=== PATIENT | male | born 1960 | race Caucasian/White ===

== ENCOUNTER 2017-04-29 12:21 | Inpatient (IN) | payer BC ==
[~2017-04-29] VITALS: Ht 180.3 cm; Wt 116.8 kg
[~2017-04-29 12:21] MED LIST: ASCO1CAP PO; ASPI-110 PO; COQ-100C5 PO; CRANCAP2 PO; DEXAMETHASONE SOD PHOS 4 MG/ML VIAL IV ONE; FURO20TA PO; GABA300C5 PO; GLYCOPYRROLATE 0.2 MG/ML VIAL IV ONE; LACTATED RINGER'S 1000 ML INJ 1,000 ML IV ONE; LIDOCAINE HCL 1% PF 5 ML AMPULE OTHER ONE; MIDAZOLAM HCL 2 MG/2 ML VIAL IV ONE; MULT-65 PO; NIAC500T5 PO; OMEGCAP PO; ONDANSETRON HCL 4 MG/2 ML VIAL IV PUSH ONE; PROPOFOL 200 MG/20 ML AMP IV ONE; ROCURONIUM INJ 50 MG/5 ML SYRINGE IV PUSH ONE; ROSU10 PO; TAMS5CAP PO; ePHEDrine/NS 25 MG/5 ML SYR IV ONE
[2017-04-29] MEDS: POVIDONE IODINE 5% (ANTISEPSIS KIT) 4 APPLICATIONS EACH NARE PRN ×2 (13:00→13:30)
[2017-04-29] MEDS: CHLORHEXIDINE GLUCONATE 2 % 1 PACK (2 CLOTHS) TOPICAL PRN ×2 (13:00→13:30)
[2017-04-29] MEDS ORDERED: DEXT 5%-NACL 0.9% 1000 ML INJ 1,000 ML IV SCH (13:00)
[2017-04-29] MEDS ORDERED: SODIUM CHLORID 0.9% 500 ML IV PRN (13:00)
[2017-04-29] MEDS ORDERED: ceFAZolin 1,000 MG/NS 100 ML IV SCH ×2 (13:00)
[2017-04-29] MEDS ORDERED: METOPROLOL TARTRATE 25 MG TAB PO PRN (13:00)
[2017-04-29] MEDS ORDERED: INSULIN HUMAN REGULAR 1,000 UNITS/10 ML VIAL SQ PRN (13:00)
[2017-04-29] MEDS ORDERED: METRONIDAZOLE 500 MG/100 ML ISONTONIC SOLN IV SCH (13:00)
[2017-04-29] MEDS: LACTATED RINGER'S 1000 ML IV PRN ×2 (13:20→13:30)
--- NOTE | 2017-04-29 13:21 | PD.HP.UP ---
H&P Update Note The Pre-Admit History and Physical Examination regarding the above named patient was reviewed (including, but not limited to, vital signs, heart, lungs, co-morbid conditions), and upon re-examination it is noted that: the patient's condition has not significantly changed since the last examination. Jaspreet Knox MD Apr 29, 2017 13:21
--- NOTE | 2017-04-29 13:47 | RADRPT ---
EXAM DATE/TIME: 04/29/2017 12:48 [place] COMPARISON: No previous studies available for comparison. INDICATIONS : Evaluate for penumonia, pneumothorax, or communicable disease. Pre op for hernia repair. MEDICAL HISTORY : Myocardial infarction. Carcinoma, colon. Irritable bowel syndrome. Sleep apnea. Chemotherapy/Radi ation. Arthritis. SURGICAL HISTORY : Umbilical hernia repair. Colon resection. Sinusotomy. Cardiac Stent. ENCOUNTER: Initial ACUITY: 1 day PAIN SCORE: 0/10 LOCATION: chest FINDINGS: A single view of the chest demonstrates the lungs to be symmetrically aerated without evidence of mas s, infiltrate or effusion. The cardiomediastinal contours are unremarkable. Osseous structures are intact with some degenerative spurring of the dorsal spine. CONCLUSION: No acute cardiopulmonary process. Dave Hough MD on April 29, 2017 at 13:45 Board Certified Radiologist. This report was verified electronically.
[2017-04-29] MEDS ORDERED: ACETAMINOPHEN 1000 MG/100 ML 100 ML IV ONE (14:29)
[2017-04-29] MEDS ORDERED: HYDROmorphone HCL PF 2 MG/ML VIAL ONE (16:34)
[2017-04-29] MEDS ORDERED: SUGAMMADEX SODIUM 200 MG/2 ML VIAL IV PUSH ONE ×2 (16:34)
[2017-04-29] MEDS ORDERED: DO NOT ADM ANY ANTICOAGULANT DRUGS PRN (17:44)
[2017-04-29] MEDS ORDERED: BENZOCAINE 6 MG/MENTHOL 10 MG LOZENGE BUCCAL PRN (17:45)
[2017-04-29] MEDS ORDERED: NALOXONE HCL 0.4 MG/ML AMP IV PRN (17:45)
[2017-04-29] MEDS ORDERED: ENALAPRILAT 1.25 MG/ML VIAL IV PRN (17:45)
[2017-04-29] MEDS ORDERED: KETOROLAC TROMETHAMINE 30 MG/ML (IVP) VIAL IVP PRN (17:45)
[2017-04-29] MEDS ORDERED: ONDANSETRON HCL 4 MG/2 ML VIAL IV PRN (17:45)
[2017-04-29] MEDS ORDERED: SODIUM CHLORIDE 0.9% FLUSH 5 ML FLUSH IVF PRN (17:45)
[2017-04-29] MEDS ORDERED: GABAPENTIN 300 MG CAP PO PRN (17:45)
[2017-04-29] MEDS ORDERED: ENALAPRILAT 2.5 MG/2 ML VIAL IV PRN (17:45)
[2017-04-29] MEDS ORDERED: ACETAMINOPHEN/HYDROcodone 325 MG/5 MG TAB PO PRN (17:45)
[2017-04-29] MEDS ORDERED: ACETAMINOPHEN 325 MG TAB PO PRN (17:45)
[2017-04-29] MEDS ORDERED: POTASSIUM CHLOR 40 MEQ PREMIX 100 ML IV PRN (17:45)
[2017-04-29] MEDS ORDERED: POTASSIUM CHLOR 20 MEQ PREMIX 100 ML IV PRN (17:45)
[2017-04-29] MEDS ORDERED: MORPHINE SULFATE 30 MG/30 ML PCA IV SCH (17:45)
[2017-04-29] MEDS ORDERED: Post-op Orders (for Pharmacy) MISC XX ONE (17:45)
--- NOTE | 2017-04-29 17:47 | HHI.PR ---
Immediate Post Op Note Procedure Date: Apr 29, 2017 Pre Op Diagnosis: Mult Ventral Hernias Post Op Diagnosis: Same Surgeon: Jaspreet Knox Baggage Screener(s): Ariel Procedure: Exploratory Lap + repair mult ventral hernias Findings: mult ventral hernias, attenuated fascia No cancer Complications: None Specimen(s) removed: sac Estimated blood loss: 100cc Anesthesia: General Drains: HORACIO IVF Patient to: PACU Patient Condition: Good Jaspreet Knox MD Apr 29, 2017 17:47
[2017-04-29] MEDS ORDERED: *morphine SULFATE 8 MG/ML PERIprocedure ONLY ONE ×2 (17:52→18:00)
[2017-04-29] MEDS ORDERED: KETAMINE HCL 500 MG/5 ML VIAL ONE (17:53)
[2017-04-29] MEDS ORDERED: *HYDROmorphone PF 1 MG VIAL PERIprocedural Use ONLY ONE ×2 (18:08→18:36)
[2017-04-29] MEDS: D5-NS + KCL 20 MEQ INJ 1,000 ML IV SCH ×2 (18:15→23:24)
[2017-04-29 19:45] VITALS: BP 126/93; PULSE 64; RESP 16; TEMP 98; O2SAT 100
[2017-04-29 20:15] VITALS: PULSE 87
[2017-04-29] MEDS: SODIUM CHLORIDE 0.9% FLUSH 5 ML FLUSH IVF SCH (21:00)
[2017-04-29] MEDS: TAMSULOSIN HCL 0.4 MG CAP PO SCH (21:09)
[2017-04-29] MEDS: METOCLOPRAMIDE HCL 10 MG/2 ML VIAL IVS SCH (21:09)
[2017-04-29] MEDS: ATORVASTATIN 20 MG TAB PO SCH (21:09)
[2017-04-29] MEDS: metroNIDAZOLE 500 MG INJ 100 ML IV SCH (21:19)
[2017-04-29] MEDS: PCA - TOTAL MG MORPHINE DELIVERED PER SHIFT SCH (22:00)
[2017-04-29 23:25] VITALS: BP 98/65; PULSE 61; RESP 16; TEMP 98.8; O2SAT 100
[2017-04-30] VITALS (10 sets, daily range): BP systolic 92–135; BP diastolic 60–78; PULSE 61–101; RESP 16–20; TEMP 97.9–100.2; O2SAT 93–98
[2017-04-30] MEDS: D5-NS + KCL 20 MEQ INJ 1,000 ML IV SCH ×2 (05:07→14:54)
[2017-04-30] MEDS: PCA - TOTAL MG MORPHINE DELIVERED PER SHIFT SCH ×3 (06:00→21:54)
[2017-04-30] MEDS: metroNIDAZOLE 500 MG INJ 100 ML IV SCH ×2 (06:29→16:24)
[2017-04-30] MEDS: SODIUM CHLORIDE 0.9% FLUSH 5 ML FLUSH IVF SCH ×2 (09:00→20:07)
[2017-04-30] MEDS: PANTOPRAZOLE SODIUM 40 MG VIAL IVP SCH (09:00)
[2017-04-30] MEDS: PANTOPRAZOLE SOD 40 MG DELAYED RELEASE TAB PO SCH (09:14)
[2017-04-30] MEDS: METOCLOPRAMIDE HCL 10 MG/2 ML VIAL IVS SCH ×2 (09:15→20:03)
[2017-04-30] MEDS: TAMSULOSIN HCL 0.4 MG CAP PO SCH ×2 (09:15→20:03)
[2017-04-30] MEDS: ALVIMOPAN 12 MG CAPSULE PO SCH ×2 (09:27→20:03)
[2017-04-30 10:58] LABS: AUTOMATED NEUTROPHIL # 8.8 TH/MM3 (1.8-7.7); BASOPHIL % 0.1 % (0.0-2.0); EOSINOPHIL % 0.4 % (0.0-4.0); HEMATOCRIT 41.9 % (39.0-51.0); HEMO FLAGS DIFF FINAL; LYMPH % 11.1 % (9.0-44.0); LYMPHOCYTE # 1.3 TH/MM3 (1.0-4.8); MEAN CELL VOLUME 91.1 FL (80.0-100.0); MEAN CORPUSCULAR HEMOGLOBIN 30.7 PG (27.0-34.0); MEAN CORPUSCULAR HGB CONC 33.7 % (32.0-36.0); MONO % 10.7 % (0.0-8.0); NEUT % 77.7 % (16.0-70.0); PLATELET COUNT 193 TH/MM3 (150-450); RED CELL DISTRIBUTION WIDTH 13.1 % (11.6-17.2); WHITE BLOOD COUNT 11.3 TH/MM3 (4.0-11.0)
[2017-04-30 11:24] LABS: BICARBONATE 25.5 MEQ/L (21.0-32.0); POTASSIUM 4.2 MEQ/L (3.5-5.1)
[2017-04-30] MEDS: ATORVASTATIN 20 MG TAB PO SCH (20:03)
--- NOTE | 2017-04-30 21:02 | EKG ---
Date Performed: 04/29/2017 Time Performed: 13:50:34 PTAGE: 56 years EKG: Sinus rhythm WITH OCCASIONAL SUPRAVENTRICULAR PREMATURE COMPLEXES INFERIOR MYOCARDIAL INFARCTION , OF INDETERMINA TE AGE ABNORMAL ECG PREVIOUS TRACING : 05/22/2015 12.18 Compared to prior tracing no significant change DOCTOR: Cristiano Sanchez Interpretating Date/Time 04/30/2017 20:53:31
--- NOTE | 2017-04-30 23:21 | HHI.PR ---
Subjective Remarks C/R Surg POD # 1 afebrile, VSS UO good drains min Objective - Vital Signs Date Time Temp Pulse Resp B/P (MAP) Pulse Ox O2 Delivery O2 Flow Rate FiO2 04/30/17 21:54 16 04/30/17 21:45 Bi-Pap 04/30/17 20:24 96 04/30/17 19:00 98.4 86 135/73 (93) 04/30/17 08:03 21 04/29/17 19:45 3.00 Result Diagram: 04/30/17 0935 04/30/17 0935 Objective Remarks PE alert Abd - soft, wound dry A/P Assessment and Plan Imp: stable post-op OOB start PO dc Jaspreet Phillips MD Apr 30, 2017 23:21
[2017-05-01 00:39] VITALS: TEMP 99.8
[2017-05-01] MEDS: ACETAMINOPHEN/HYDROcodone 325 MG/5 MG TAB PO PRN ×4 (00:43→18:43)
[2017-05-01 03:00] VITALS: BP 114/63; PULSE 89; RESP 18; TEMP 98.7; O2SAT 96
[2017-05-01] MEDS: D5-NS + KCL 20 MEQ INJ 1,000 ML IV SCH ×3 (03:33→23:52)
[2017-05-01] MEDS: PCA - TOTAL MG MORPHINE DELIVERED PER SHIFT SCH (05:29)
[2017-05-01 05:54] LABS: AUTOMATED NEUTROPHIL # 8.2 TH/MM3 (1.8-7.7); BASOPHIL % 0.4 % (0.0-2.0); EOSINOPHIL # 0.1 TH/MM3 (0-0.4); EOSINOPHIL % 0.6 % (0.0-4.0); HEMATOCRIT 39.1 % (39.0-51.0); HEMO FLAGS DIFF FINAL; LYMPH % 11.2 % (9.0-44.0); LYMPHOCYTE # 1.2 TH/MM3 (1.0-4.8); MEAN CELL VOLUME 90.5 FL (80.0-100.0); MEAN CORPUSCULAR HEMOGLOBIN 30.2 PG (27.0-34.0); MEAN CORPUSCULAR HGB CONC 33.4 % (32.0-36.0); MONO % 10.8 % (0.0-8.0); PLATELET COUNT 181 TH/MM3 (150-450); RED BLOOD COUNT 4.33 MIL/MM3 (4.50-5.90); RED CELL DISTRIBUTION WIDTH 13.2 % (11.6-17.2); WHITE BLOOD COUNT 10.7 TH/MM3 (4.0-11.0)
[2017-05-01 06:20] LABS: BICARBONATE 25.1 MEQ/L (21.0-32.0); POTASSIUM 3.9 MEQ/L (3.5-5.1)
--- NOTE | 2017-05-01 07:36 | HHI.PR ---
Subjective Remarks C/R Surg POD # 2 afebrile, VSS UO good drains min to PO Objective - Vital Signs Date Time Temp Pulse Resp B/P (MAP) Pulse Ox O2 Delivery O2 Flow Rate FiO2 05/01/17 05:29 18 05/01/17 03:00 98.7 89 114/63 (80) 96 05/01/17 03:00 Room Air 04/30/17 08:03 21 04/29/17 19:45 3.00 Result Diagram: 05/01/1752305/01/17523 Objective Remarks PE alert Abd - soft, wound dry, + FLATUS A/P Assessment and Plan Imp: OOB start PO, adv dc Jaspreet Phillips MD May 01, 2017 07:36
[2017-05-01 07:45] VITALS: BP 118/75; PULSE 88; RESP 16; TEMP 98.5; O2SAT 94
[2017-05-01] MEDS ORDERED: METOCLOPRAMIDE HCL 10 MG/2 ML VIAL IVS PRN (07:45)
[2017-05-01] MEDS: PANTOPRAZOLE SODIUM 40 MG VIAL IVP SCH (09:00)
[2017-05-01] MEDS: SODIUM CHLORIDE 0.9% FLUSH 5 ML FLUSH IVF SCH ×2 (09:00→21:00)
[2017-05-01] MEDS: ALVIMOPAN 12 MG CAPSULE PO SCH ×2 (09:01→21:27)
[2017-05-01] MEDS: PANTOPRAZOLE SOD 40 MG DELAYED RELEASE TAB PO SCH (09:01)
[2017-05-01] MEDS: TAMSULOSIN HCL 0.4 MG CAP PO SCH ×2 (09:02→21:27)
[2017-05-01] MEDS: FUROSEMIDE 20 MG TAB PO SCH (09:02)
[2017-05-01 11:15] VITALS: BP 142/68; PULSE 79; RESP 16; TEMP 98.9; O2SAT 96
[2017-05-01 15:30] VITALS: BP 150/80; PULSE 93; RESP 16; TEMP 98.3; O2SAT 96
[2017-05-01 19:00] VITALS: BP 130/93; PULSE 93; TEMP 98.1; O2SAT 96
[2017-05-01] MEDS: ATORVASTATIN 20 MG TAB PO SCH (21:26)
[2017-05-02 00:55] VITALS: BP 124/76; PULSE 92; TEMP 99.8; O2SAT 98
[2017-05-02 03:00] VITALS: BP 118/74; PULSE 92; TEMP 98.5; O2SAT 98
--- NOTE | 2017-05-02 05:45 | MP ---
cc: MARY ANN TAVARES M.D. DATE OF SURGERY April 29, 2017 PREOPERATIVE DIAGNOSES Multiple ventral hernias. History of a rectal cancer. PROCEDURE Exploratory laparotomy with mobilization of skin flaps and repair of multiple ventral hernias. POSTOPERATIVE DIAGNOSES Multiple ventral hernias. History of a rectal cancer. SURGEON Dr. Tavares PERINATAL TECH Dr. Latrell George PROCEDURE The patient was placed in the supine position. After adequate general anesthesia his abdomen was prepped with Betadine solution and draped in the usual sterile fashion. With Dr. George's assistance the abdomen was opened through the previous transverse incision. Upon entering the subcu tissue hernia sacs were noted on the right side of the abdomen extending all the way across to the left. The hernia sacs were opened and the bowel dissected off the parietal peritoneum, returning it back into the abdominal cavity. After rather lengthy dissection, all hernia sacs were connected together, reopening the entire transverse incision. The hernia sacs were very thick-walled and chronic in nature and the sacs were dissected free from the subcutaneous tissue. There was quite a bit of attenuated fascia on both sides and this was excised back to healthier, more robust muscular tissue. At the right lateral and left flanks, the tissues were still somewhat attenuated from chronic hernia prolapse. Exploration of the abdomen revealed the small bowel to be pretty unremarkable. No signs of any recurrent cancer were noted. The liver was normal to palpation. The pelvis appeared to be pretty unremarkable. After full preparation, subcutaneous flaps were raised both above and below the transverse incision to obtain adequate mobilization to reapproximate the musculature. After full mobilization there appeared to be sufficient laxity to enable a primary closure. This was done with a running #1 PDS suture starting from both lateral quadrants and running toward the midline. There did not appear to be any undue tension on the fascial closure. The subcu tissues were irrigated copiously with normal saline. Tomi-Stevens drains were placed on both the skin flaps and brought up through stab wounds out laterally, secured to the skin with nylon sutures. The subcu tissues were sutured to the fascial closure with interrupted Vicryl sutures to obliterate space. The subcu tissue was irrigated copiously and the skin closed with a row of surgical leobardo. The wound area was washed with normal saline and dried, sterile dressing of Telfa and gauze applied. The patient tolerated the procedure quite well and was brought to the recovery room in stable condition. Sponge and needle counts were correct at the end of the procedure. MD ROLO Childers/OTTO /6:15 PM /5:30 AM
[2017-05-02] MEDS ORDERED: HYDR-3516 PO ×2 (07:16→07:20)
[2017-05-02 07:40] VITALS: BP 130/76; PULSE 91; RESP 16; TEMP 98.3; O2SAT 95
[2017-05-02] MEDS: ALVIMOPAN 12 MG CAPSULE PO SCH (08:42)
[2017-05-02] MEDS: FUROSEMIDE 20 MG TAB PO SCH (08:42)
[2017-05-02] MEDS: TAMSULOSIN HCL 0.4 MG CAP PO SCH (08:42)
[2017-05-02] MEDS: PANTOPRAZOLE SOD 40 MG DELAYED RELEASE TAB PO SCH (08:42)
[2017-05-02] MEDS: PANTOPRAZOLE SODIUM 40 MG VIAL IVP SCH (08:42)
[2017-05-02] MEDS: SODIUM CHLORIDE 0.9% FLUSH 5 ML FLUSH IVF SCH (08:43)
[2017-05-02 11:25] VITALS: BP 131/80; PULSE 92; RESP 16; TEMP 98.3; O2SAT 97
--- NOTE | 2017-05-15 10:12 | MD ---
cc: MARY ANN TAVARES M.D.,JAYLYN Tineo MD ADMISSION DATE: 04/29/2017 DISCHARGE DATE: 05/02/2017 ADMISSION DIAGNOSES Large ventral hernia. History of rectal cancer. PROCEDURES - April 29, 2017 Exploratory laparotomy with mobilization of bilateral skin flaps and repair of multiple ventral hernias. POSTOPERATIVE DIAGNOSES Multiple ventral hernias. History of rectal cancer. HISTORY OF PRESENT ILLNESS Mr. Bar is a 56-year-old male who was found to have a rectal cancer almost 3 years ago. He underwent preop radiation and chemotherapy and then LAR with diverting ileostomy, had the ileostomy closed. The patient has developed a rather large hernia and a transverse incision with actual multiple components across the transverse incision. These have become progressively larger over time and have caused him more disability. He has actually been on a diet recently and has lost a considerable amount of weight. He recently had a colonoscopy which showed no signs of any recurrence of the tumor. Also, metastatic evaluation has been negative. The patient presents at this time for repair of the multiple ventral hernias. Please see admitting history and physical for more complete past medical and surgical history. PERTINENT PHYSICAL GENERAL: A very pleasant heavy-set male in no acute distress. ABDOMEN: Soft and benign. Signs of weight loss. Abdomen is asymmetric with a large hernia present on the right side plus transverse incision, multiple other hernias are palpable, easily reducible and pretty much nontender. ANAL INSPECTION: Revealed benign canal. Digital exam reveals good tone with anastomosis palpable and opened. HOSPITAL COURSE After admission, the patient was taken to the operating room on April 29, 2017, at which point he underwent an exploratory laparotomy, mobilization of bilateral skin flaps and repair of multiple ventral hernias. No signs of any recurrent tumor were found within the abdomen. He tolerated the procedure quite well. Postoperatively he was put in an abdominal binder, required some respiratory therapy for postoperative atelectasis. He was able to ambulate fairly quickly and his diet was advanced as his GI tract function returned. The patient was doing well enough to be weaned off his IV fluids and strong enough to be considered for discharge home on May 02, 2017. DISCHARGE INSTRUCTIONS The patient was discharged eating a regular diet. He was encouraged to ambulate daily, avoiding any heavy lifting or straining. The abdominal binder was to be on at all times while out of bed and he was to avoid strenuous coughing or any lifting. The patient will be seen in 1 week for additional followup and removal of his subcutaneous drains. Any problems prior to the scheduled office visit, the patient was encouraged to call for more urgent attention. MD ROLO Childers/OTTO /10:31 PM /9:56 AM
== END 2017-05-02 14:47 | disposition home or self-care (01) | DRG 355 ==
LOC: N07B 12:21 → HCPC 18:06 → HCVR 19:45 → HCIN 04-30 11:28
PROVIDERS: ADMIT Colon & Rectal Surgery; ATTEND Colon & Rectal Surgery
PROC: 0WQF0ZZ Repair Abdominal Wall, Open Approach (ICD-10-PCS; principal; 2017-04-29 15:35)
DX: K43.9 Ventral hernia without obstruction or gangrene (principal); Z85.048 Personal history of other malignant neoplasm of rectum, rectosigmoid junction, and anus; E78.5 Hyperlipidemia, unspecified; I25.10 Atherosclerotic heart disease of native coronary artery without angina pectoris; I25.2 Old myocardial infarction; Z95.5 Presence of coronary angioplasty implant and graft; Z87.891 Personal history of nicotine dependence
CPT/HCPCS: 71010; 80048; 85025; 86850; 86900; 86901; 93005; 94150; J0131; J0690; J1100; J1170; J1885; J2250; J2270; J2405; J2765; J3010; J3480; J7120

== ENCOUNTER 2018-04-02 20:38 | Inpatient (IN) ==
[2018-04-02] MEDS ORDERED: HYDROmorphone PF Inj 2 MG/ML Vial IV.PUSH ONE ×2 (20:49→20:56)
[2018-04-02] MEDS ORDERED: Sod Chloride 0.9% Inj 1,000 ML IV.CONT SCH (21:00)
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
[2018-04-02] MEDS ORDERED: Acetaminophen 325 MG Tablet PO PRN (22:00)
[2018-04-02] MEDS: Pantoprazole Inj 40 MG Vial IV.PUSH SCH (23:53)
[2018-04-03] MEDS: Morphine Inj 4 MG/ML Vial IV.PUSH PRN ×4 (02:41→12:30)
[2018-04-03] MEDS: Chlorhexidine Gluconate 2% 1 Pack (2 Cloths) TOPICAL SCH (03:42)
[2018-04-03] MEDS ORDERED: Chlorhexidine Gluconate 2% 1 Pack (2 Cloths) TOPICAL PRN (04:00)
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
[2018-04-03] MEDS: Methocarbamol 500 MG Tablet PO SCH ×3 (06:20→21:58)
[2018-04-03] MEDS: Sod Chloride 0.9% Inj 1,000 ML IV.CONT SCH ×2 (06:21→17:18)
[2018-04-03] MEDS: Gabapentin 100 MG Capsule PO SCH (08:28)
[2018-04-03] MEDS: Lidocaine 5% Patch T-DERMAL SCH (08:28)
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
[2018-04-03 11:21] LABS: Baso % (Auto) 0.4 % (0.0-2.0); Eos # (Auto) 0.1 th/mm3 (0.0-0.4); Eos % (Auto) 1.2 % (0.0-4.0); Hematocrit 41.9 % (39.0-51.0); Hemoglobin 14.2 gm/dL (13.0-17.0); Lymph # (Auto) 1.1 th/mm3 (1.0-4.8); Lymph % (Auto) 11.4 % (9.0-44.0); Mean Corpuscular HGB Conc 33.8 % (32.0-36.0); Mean Corpuscular Volume 91.6 fL (80.0-100.0); Mono # (Auto) 0.8 th/mm3 (0.0-0.9); Mono % (Auto) 8.1 % (0.0-8.0); Neut # (Auto) 7.6 th/mm3 (1.8-7.7); Neut % (Auto) 78.9 % (16.0-70.0); Platelet Count 196 th/mm3 (150-450); Red Blood Count 4.57 mil/mm3 (4.50-5.90); Red Cell Distribution Width 13.7 % (11.6-17.2); White Blood Count 9.7 th/mm3 (4.0-11.0)
[2018-04-03 11:37] LABS: Albumin 3.7 g/dL (3.4-5.0); Anion Gap 5 meq/L (5-15); Aspartate Aminotransferase 40 U/L (15-37); Blood Urea Nitrogen 11 mg/dL (7-18); Calcium 8.2 mg/dL (8.5-10.1); Carbon Dioxide 26.9 meq/L (21.0-32.0); Chloride 111 meq/L (98-107); Glomerular Filtration Rate Greater Than 89 mL/min (>89); Glucose,Random 137 mg/dL (74-106); Potassium 4.1 meq/L (3.5-5.1); Sodium 143 meq/L (136-145)
[2018-04-03 11:41] LABS: Alanine Aminotransferase 41 U/L (12-78); Alkaline Phosphatase 61 U/L (45-117)
[2018-04-03] MEDS: Senna/Docusate Sodium 8.6/50 MG Tablet PO SCH ×2 (14:12→21:58)
[2018-04-03] MEDS: Enoxaparin Inj 40 MG/0.4 ML Syringe SQ SCH (14:13)
--- NOTE | 2018-04-03 16:59 | MR ---
EXAM DATE: 04/03/2018 4:43 PM EDT AGE/SEX: 57 years / Male INDICATIONS: Fracture. CLINICAL DATA: This is the patient's initial encounter. Patient reports that signs and symptoms have been present for 1 day and indicates a pain score of 4/10. MEDICAL/SURGICAL HISTORY: Carcinoma, colon. Hypertension. Inguinal hernia repair. Craniotomy. COMPARISON: No prior exams available for comparison. TECHNIQUE: Multiplanar, multisequence MRI examination of the cervical spine was performed without co ntrast. FINDINGS: Slightly degenerative changes seen within the marrow. There is mild opacification of visualized right mastoid air cells. No definite fracture is identified for technique, however a subtle fracture may g o undetected by MRI. We do not have any prior studies for direct comparison. C2-C3: There is slight neural foramina compromise on the left due to asymmetrical bulging disc and h ypertrophic changes. No significant thecal sac stenosis is seen. C3-C4: There is moderate overall thecal sac stenosis with slight flattening of the spinal cord due t o central disc/osteophyte complex and hypertrophic changes. There is questionable mild degree of franny ma within the cord at this level versus artifact only seen on the sagittal T2 sequence. There is slig ht neural foramina compromise on the left due to asymmetrical bulging disc and hypertrophic changes. Slight degenerative changes are present in the disc space and facets. C4-C5: There is moderate overall thecal sac stenosis with slight flattening of the spinal cord due to central disc/osteophyte complex and hypertrophic changes. There is slight neural foramina comprom ise bilaterally due to bulging disc and hypertrophic changes. Slight degenerative changes are presen t in the disc space and facets. C5-C6: There is moderate overall thecal sac stenosis with slight fla ttening of the spinal cord due to central disc/osteophyte complex and hypertrophic changes. There is slight neural foramina compromise bilaterally due to bulging disc and hypertrophic changes. Slight degenerative changes are present in the disc space and facets. C6-C7: Moderate degenerative changes are present in the disc space and facets. There is slight neura l foramina compromise bilaterally due to bulging disc and hypertrophic changes. No appreciable theca l sac stenosis is seen. C7-T1: No appreciable compromise to the thecal sac, exiting nerve roots are seen. The neural forami na are patent bilaterally. No appreciable thecal sac stenosis is seen. CONCLUSION: 1. Moderate thecal sac stenosis C3-4, C4-5, C5-6. Questionable mild edema within the cord at C3-4 le cheryl. 2. There are foraminal compromise left C2-3, right C3-4, bilateral C4-5, bilateral C5-C6 and bilater al C6-7. Electronically signed by: Estella Quan MD 04/03/2018 4:58 PM EDT
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
[2018-04-03] MEDS: Pantoprazole Inj 40 MG Vial IV.PUSH SCH (21:59)
[2018-04-04] MEDS: Morphine Inj 4 MG/ML Vial IV.PUSH PRN (00:21)
[2018-04-04] MEDS: Sod Chloride 0.9% Inj 1,000 ML IV.CONT SCH ×2 (04:05→11:06)
[2018-04-04] MEDS: Chlorhexidine Gluconate 2% 1 Pack (2 Cloths) TOPICAL SCH (04:07)
[2018-04-04 04:39] LABS: Baso % (Auto) 0.5 % (0.0-2.0); Eos # (Auto) 0.4 th/mm3 (0.0-0.4); Eos % (Auto) 3.8 % (0.0-4.0); Hematocrit 43.1 % (39.0-51.0); Lymph # (Auto) 1.3 th/mm3 (1.0-4.8); Lymph % (Auto) 12.3 % (9.0-44.0); Mean Corpuscular HGB Conc 34.7 % (32.0-36.0); Mean Corpuscular Hemoglobin 31.4 pg (27.0-34.0); Mean Corpuscular Volume 90.5 fL (80.0-100.0); Mean Platelet Volume 8.7 fL (7.0-11.0); Mono # (Auto) 1.1 th/mm3 (0.0-0.9); Mono % (Auto) 10.5 % (0.0-8.0); Neut # (Auto) 7.5 th/mm3 (1.8-7.7); Neut % (Auto) 72.9 % (16.0-70.0); Platelet Count 197 th/mm3 (150-450); Red Blood Count 4.76 mil/mm3 (4.50-5.90); Red Cell Distribution Width 13.3 % (11.6-17.2); White Blood Count 10.3 th/mm3 (4.0-11.0)
[2018-04-04 04:54] LABS: Anion Gap 7 meq/L (5-15); Blood Urea Nitrogen 9 mg/dL (7-18); Calcium 8.5 mg/dL (8.5-10.1); Carbon Dioxide 27.9 meq/L (21.0-32.0); Chloride 106 meq/L (98-107); Glomerular Filtration Rate Greater Than 89 mL/min (>89); Glucose,Random 106 mg/dL (74-106); Potassium 4.2 meq/L (3.5-5.1); Sodium 141 meq/L (136-145)
--- NOTE | 2018-04-04 05:25 | XR ---
EXAM DATE: 04/04/2018 4:55 AM EDT AGE/SEX: 57 years / Male INDICATIONS: Follow up trauma. Respiratory status. CLINICAL DATA: This is the patient's subsequent encounter. Patient reports that signs and symptoms h ave been present for 3 days and indicates a pain score of 8/10. MEDICAL/SURGICAL HISTORY: None. None. [place] [facility] [place]. . FINDINGS: A single AP view of the chest demonstrates persistent left basilar airspace disease with associated e ffusions. There may be some slight worsening of interstitial prominence in the left hemithorax. Right lung is clear. Heart size is borderline prominent. Multiple left-sided rib fractures. CONCLUSION: 1. Persistent left basilar airspace disease with slight worsening of the interstitial markings when compared to prior 2. Multiple left-sided rib fractures. Right lung remains clear. Electronically signed by: Dave Hough MD 04/04/2018 5:23 AM EDT
[2018-04-04] MEDS: Methocarbamol 500 MG Tablet PO SCH ×3 (06:47→22:07)
[2018-04-04] MEDS: Enoxaparin Inj 40 MG/0.4 ML Syringe SQ SCH (08:43)
[2018-04-04] MEDS: Lidocaine 5% Patch T-DERMAL SCH (08:43)
[2018-04-04] MEDS: Senna/Docusate Sodium 8.6/50 MG Tablet PO SCH ×2 (08:43→22:07)
[2018-04-04] MEDS: Gabapentin 100 MG Capsule PO SCH (08:44)
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
[2018-04-04] MEDS: Pantoprazole Inj 40 MG Vial IV.PUSH SCH (22:07)
[2018-04-05] MEDS: Sod Chloride 0.9% Inj 1,000 ML IV.CONT SCH ×3 (03:35→17:31)
[2018-04-05] MEDS: Chlorhexidine Gluconate 2% 1 Pack (2 Cloths) TOPICAL SCH (03:54)
[2018-04-05] MEDS: Methocarbamol 500 MG Tablet PO SCH ×3 (06:47→21:29)
--- NOTE | 2018-04-05 06:47 | XR ---
EXAM DATE: 04/05/2018 6:40 AM EDT AGE/SEX: 57 years / Male INDICATIONS: Shortness of breath, possible pneumothorax. CLINICAL DATA: This is the patient's subsequent encounter. Patient reports that signs and symptoms h ave been present for 4 - 6 days and indicates a pain score of 6/10. MEDICAL/SURGICAL HISTORY: None. None. [place] [facility] [place]. . FINDINGS: A single AP view of the chest demonstrates persistent left basilar consolidation with possible associ ated effusion. Multiple left-sided rib fractures with pleural thickening laterally could represent madera bpleural hematoma associated with the fracture injuries. Right lung remains clear. Heart size is norm al. Degenerative spurring of the dorsal spine CONCLUSION: 1. Persistent left basilar consolidation with possible effusion. 2. Multiple left-sided rib fractures with pleural thickening laterally in the left hemithorax may re present subpleural hematoma. This is prominent when compared to prior. Electronically signed by: Dave Hough MD 04/05/2018 6:46 AM EDT
[2018-04-05] MEDS: Gabapentin 100 MG Capsule PO SCH (08:45)
[2018-04-05] MEDS: Enoxaparin Inj 40 MG/0.4 ML Syringe SQ SCH (08:45)
[2018-04-05] MEDS: Senna/Docusate Sodium 8.6/50 MG Tablet PO SCH ×2 (08:45→21:29)
[2018-04-05] MEDS: Lidocaine 5% Patch T-DERMAL SCH (08:46)
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
[2018-04-05] MEDS: Loratadine 10 MG Tablet PO SCH (13:20)
[2018-04-05] MEDS: Pantoprazole Inj 40 MG Vial IV.PUSH SCH (21:28)
[2018-04-06] MEDS: Methocarbamol 500 MG Tablet PO SCH ×3 (05:57→22:40)
[2018-04-06] MEDS: Sod Chloride 0.9% Inj 1,000 ML IV.CONT SCH ×2 (05:59→13:41)
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
[2018-04-06] MEDS: Senna/Docusate Sodium 8.6/50 MG Tablet PO SCH ×2 (09:20→22:40)
[2018-04-06] MEDS: Loratadine 10 MG Tablet PO SCH (09:20)
[2018-04-06] MEDS: Gabapentin 100 MG Capsule PO SCH (09:20)
[2018-04-06] MEDS: Lidocaine 5% Patch T-DERMAL SCH (09:22)
[2018-04-06] MEDS: Enoxaparin Inj 40 MG/0.4 ML Syringe SQ SCH (09:22)
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
[2018-04-06] MEDS: Pantoprazole Inj 40 MG Vial IV.PUSH SCH (22:39)
[2018-04-07] MEDS: Sod Chloride 0.9% Inj 1,000 ML IV.CONT SCH ×3 (03:05→21:03)
[2018-04-07] MEDS: Methocarbamol 500 MG Tablet PO SCH ×3 (05:32→21:02)
[2018-04-07] MEDS ORDERED: Bisacodyl 10 MG Supp RECTAL ONE (06:53)
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
[2018-04-07] MEDS: Lidocaine 5% Patch T-DERMAL SCH (09:18)
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
[2018-04-07] MEDS: Enoxaparin Inj 40 MG/0.4 ML Syringe SQ SCH (09:39)
[2018-04-07] MEDS: Gabapentin 100 MG Capsule PO SCH (09:39)
[2018-04-07] MEDS: Loratadine 10 MG Tablet PO SCH (09:40)
[2018-04-07] MEDS: Senna/Docusate Sodium 8.6/50 MG Tablet PO SCH ×2 (09:40→20:44)
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
--- NOTE | 2018-04-07 16:19 | ECG ---
Date Performed: 04/06/2018 Time Performed: 14:35:54 PTAGE: 57 years EKG: SINUS TACHYCARDIA POSSIBLE LEFT ATRIAL ENLARGEMENT INFERIOR MYOCARDIAL INFARCTION , PROBABL Y OLD Since the previous tracing, no significant change noted ABNORMAL ECG PREVIOUS TRACING : 04/29/2017 13.50 DOCTOR: Richmond Valente Interpretating Date/Time 04/07/2018 16:16:38
[2018-04-07] MEDS: prednisoLONE Acetate 1% Opth Susp 5 ML Bottle RIGHT EYE SCH ×2 (18:39→20:51)
[2018-04-07] MEDS: Pantoprazole Inj 40 MG Vial IV.PUSH SCH (21:01)
[2018-04-08] MEDS: Methocarbamol 500 MG Tablet PO SCH ×2 (05:16→14:40)
[2018-04-08] MEDS: Sod Chloride 0.9% Inj 1,000 ML IV.CONT SCH (07:35)
[2018-04-08] MEDS: Gabapentin 100 MG Capsule PO SCH (08:57)
[2018-04-08] MEDS: Loratadine 10 MG Tablet PO SCH (08:57)
[2018-04-08] MEDS: Enoxaparin Inj 40 MG/0.4 ML Syringe SQ SCH (08:58)
[2018-04-08] MEDS: Lidocaine 5% Patch T-DERMAL SCH (08:58)
[2018-04-08] MEDS: Senna/Docusate Sodium 8.6/50 MG Tablet PO SCH ×2 (08:58→22:01)
[2018-04-08] MEDS: prednisoLONE Acetate 1% Opth Susp 5 ML Bottle RIGHT EYE SCH ×4 (09:13→22:02)
--- NOTE | 2018-04-08 09:15 | P.PNNS ---
Subjective Interval history: Pt awake and alert. Complains of neck soreness. Some discomfort in right elbow and arm area but not radicular in nature and moves RUE well. No sob. left rib soreness. No paresthesias currently in UEs. <Jay Mead - Last Filed: 04/08/18 09:10> Physical Exam Vital signs: Vital Signs 04/07/18 12:00 04/07/18 13:59 04/07/18 16:00 Temperature 98 F 98 F Pulse Rate 87 118 H 93 H Respiratory Rate 18 18 18 Blood Pressure 121/64 135/65 Pulse Oximetry 94 L 94 L 92 L 04/07/18 19:28 04/07/18 20:36 04/07/18 20:38 Temperature 97.7 F Pulse Rate 107 H 100 H Respiratory Rate 19 18 Blood Pressure 151/75 H Pulse Oximetry 95 95 04/08/18 00:00 04/08/18 00:37 04/08/18 03:22 Temperature 98.6 F Pulse Rate 90 97 H Respiratory Rate 18 18 18 Blood Pressure 126/60 Pulse Oximetry 92 L 04/08/18 03:29 04/08/18 03:50 04/08/18 04:30 Temperature 98.3 F Pulse Rate 87 Respiratory Rate 16 18 16 Blood Pressure 149/75 H Pulse Oximetry 92 L Intake & Output 04/07/18 04/08/18 04/08/18 18:59 06:59 18:59 Intake Total 360 / 360 Output Total 751 / 751 Balance -751 / -751 360 / 360 Weight 122.3 kg Intake: Oral 360 / 360 Output: Urine 750 / 750 Stool 1 / Other: # Voids 1 Date of Last Bowel Movement 04/02/18 04/07/18 # Bowel Movements 0 - Constitutional no acute distress - Routine HEENT Exam Head: Present: normocephalic, atraumatic Eye: Present: PERRL. Absent: conjunctival icterus ENT: Present: oropharynx clear - Routine Neck Exam Present: trachea midline - Routine Respiratory Exam Present: CTA bilaterally. Absent: respiratory distress, rhonchi, wheezes - Routine Cardiovascular Exam Present: RRR, S1, S2. Absent: murmur - Routine Abdominal Exam Present: soft, normoactive bowel sounds. Absent: tenderness, distended - Routine Neurological Exam Present: alert, oriented X3, moving all extremities, normal speech. Absent: sensory deficit, motor deficit, altered mental status - Detailed Neurological Exam: Coma Scale Eye Opening: Spontaneous Verbal Response: Oriented Motor Response: Obey commands [place] Coma Scale Total: 15 - Routine Psychiatric Exam Present: normal affect, cooperative, good insight, good judgment. Absent: agitated <Jay Mead - Last Filed: 04/08/18 09:10> Vital signs: Vital Signs 04/07/18 16:00 04/07/18 19:28 04/07/18 20:36 Temperature 98 F 97.7 F Pulse Rate 93 H 107 H Respiratory Rate 18 19 Blood Pressure 135/65 151/75 H Pulse Oximetry 92 L 95 95 04/07/18 20:38 04/08/18 00:00 04/08/18 00:37 Temperature 98.6 F Pulse Rate 100 H 90 Respiratory Rate 18 18 18 Blood Pressure 126/60 Pulse Oximetry 92 L 04/08/18 03:22 04/08/18 03:29 04/08/18 03:50 Temperature 98.3 F Pulse Rate 97 H 87 Respiratory Rate 18 16 18 Blood Pressure 149/75 H Pulse Oximetry 92 L 04/08/18 04:30 04/08/18 08:00 04/08/18 09:28 Temperature 97.7 F Pulse Rate 79 Respiratory Rate 16 16 18 Blood Pressure 132/75 Pulse Oximetry 96 04/08/18 10:15 04/08/18 12:55 04/08/18 13:41 Temperature Pulse Rate 74 79 Respiratory Rate 18 18 18 Blood Pressure Pulse Oximetry 93 L Intake & Output 04/07/18 04/08/18 04/08/18 18:59 06:59 18:59 Intake Total 360 / 360 Output Total 751 / 751 Balance -751 / -751 360 / 360 Weight 122.3 kg Intake: Oral 360 / 360 Output: Urine 750 / 750 Stool Other: # Voids 1 Date of Last Bowel Movement 04/02/18 04/07/18 04/07/18 # Bowel Movements 0 <Adriano Barry - Last Filed: 04/08/18 15:10> Assessment and Plan - Assessment (1) Fracture of thoracic spine Code(s): S22.009A - Unspecified fracture of unspecified thoracic vertebra, initial encounter for closed fracture Status: Acute Qualifiers: Encounter type: initial encounter Thoracic vertebra fracture level: T7 Fracture type: closed Fracture morphology: other fracture Qualified Code(s) : S22.068A - Other fracture of T7-T8 thoracic vertebra, initial encounter for closed fracture (2) Stenosis of cervical spine with myelopathy Code(s): M47.12 - Other spondylosis with myelopathy, cervical region Status: Acute (3) Concussion Code(s): S06.0X9A - Concussion with loss of consciousness of unspecified duration, initial encounter Status: Acute Qualifiers: Encounter type: initial encounter Loss of consciousness presence/duration: with LOC of unspecified duration Qualified Code(s): S06.0X9A - Concussion with loss of consciousness of unspecified duration, initial encounter (4) Cervical spine fracture Code(s): S12.9XXA - Fracture of neck, unspecified, initial encounter Status: Acute Qualifiers: Cervical vertebra fracture level: C2 Fracture type: closed Fracture morphology: type II dens Fracture alignment: nondisplaced (5) Pulmonary contusion Code(s): S27.329A - Contusion of lung, unspecified, initial encounter Status: Acute Qualifiers: Encounter type: initial encounter Laterality: left Qualified Code(s): S27.321A - Contusion of lung, unilateral, initial encounter (6) Ribs, multiple fractures Code(s): S22.49XA - Multiple fractures of ribs, unspecified side, initial encounter for closed fracture Status: Acute Qualifiers: Encounter type: initial encounter Fracture type: closed Laterality: left Qualified Code(s): S22.42XA - Multiple fractures of ribs, left side, initial encounter for closed fracture - Plan 57 year old male with a C2 type II nondisplaced odontoid fracture and spinal cord contusion from stenosis related to disc osteophyte complex at C3-4, C4-5 and C5-[address] Barry reports: I again discussed with him the alternatives of treatment for the C2 fracture, including bracing of the cervical spine with a halo brace versus surgical procedure with placement of an odontoid screw. Treatment for the multilevel cervical stenosis would entail an anterior C3-4, C4-5 and C-6 microdiscectomy with fusion and plate placement. The details of the procedure alternatives risks potential complications were discussed with him, including its indications, alternatives, risks, and potential complications. Risks and potential complications include, but are not limited to, infection, blood loss, CSF leak, partial or complete loss of sight in one or both eyes, paresis, paralysis, permanent pain or difficulty swallowing, loss of bowel or bladder function, complications from anesthesia, blood clot, stroke, myocardial infarction, or even . The possibility of nonoperative treatment has been offered. Continue Narcotics as needed for pain control and Pulmonary: aggressive pulmonary toilette, nasotracheal suction, and breathing treatments with nebulizers. Daily PT and OT Renal: Continue to monitor closely urine output, BUN and creatinine Endocrine: Continue to Monitor serial Acu checks and SSI as needed in detail ID continue to monitor for signs of infection Continue Protonix for stress ulcer prophylaxis Continue Kulwant hose and SCD's for DVT prophylaxis Pt states he has been seen by Cardiology and felt to be a surgical candidate. Pt wants to proceed with surgery. We will look at OR schedule possibly Friday if we have clearance. <Jay Mead - Last Filed: 04/08/18 09:10> - Assessment (1) Concussion Code(s): S06.0X9A - Concussion with loss of consciousness of unspecified duration, initial encounter Status: Acute Qualifiers: Encounter type: initial encounter Loss of consciousness presence/duration: with LOC of unspecified duration Qualified Code(s): S06.0X9A - Concussion with loss of consciousness of unspecified duration, initial encounter (2) Cervical spine fracture Code(s): S12.9XXA - Fracture of neck, unspecified, initial encounter Status: Acute Qualifiers: Cervical vertebra fracture level: C2 Fracture type: closed Fracture morphology: type II dens Fracture alignment: nondisplaced (3) Ribs, multiple fractures Code(s): S22.49XA - Multiple fractures of ribs, unspecified side, initial encounter for closed fracture Status: Acute Qualifiers: Encounter type: initial encounter Fracture type: closed Laterality: left Qualified Code(s): S22.42XA - Multiple fractures of ribs, left side, initial encounter for closed fracture (4) Fracture of thoracic spine Code(s): S22.009A - Unspecified fracture of unspecified thoracic vertebra, initial encounter for closed fracture Status: Acute Qualifiers: Encounter type: initial encounter Thoracic vertebra fracture level: T7 Fracture type: closed Fracture morphology: other fracture Qualified Code(s) : S22.068A - Other fracture of T7-T8 thoracic vertebra, initial encounter for closed fracture (5) Stenosis of cervical spine with myelopathy Code(s): M47.12 - Other spondylosis with myelopathy, cervical region Status: Acute - Attending Attestation The exam, history, and the medical decision-making described in the above note were completed with the assistance of the mid-level provider. I reviewed and agree with the findings presented. I attest that I had a [id number] encounter with the patient on the same day, and personally performed and documented my assessment and findings in the medical record. <Adriano Barry - Last Filed: 04/08/18 15:10>
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
--- NOTE | 2018-04-08 17:18 | ECHRPT ---
Indication: CHRONIC PUL HEART DISEASE CONCLUSIONS Normal left ventricular size. Wall thickness is normal. The left ventricular ejection fractioon is between 45 and 55%. Cannot exclude possible posterior hypokinesis - study quality suboptimal for wall motion.. The aortic root and proximal ascending aorta are not well seen. Mitral annular calcification is present. No MR seen. The estimated pulmonary arterial pressure is 27mmHg. The pulmonary valve is not well visualized. A small left sided pleural effusion is noted. BP: / HR: Rhythm: MEASUREMENTS (Male / Female) Normal Values Technical Quality:Poor 2D ECHO LV Diastolic Diameter PLAX 5.0 cm 4.2 - 5.9 / 3.9 - 5.3 cm IVS Diastolic Thickness 0.9 cm 0.6 - 1.0 / 0.6 - 0.9 cm LVPW Diastolic Thickness 0.6 cm 0.6 - 1.0 / 0.6 - 0.9 cm LV Relative Wall Thickness 0.3 RV Internal Dim ED PLAX 2.4 cm DOPPLER Mitral E Point Velocity 79.5 cm/s Mitral A Point Velocity 98.2 cm/s Mitral E to A Ratio 0.8 TR Peak Velocity 206.0 cm/s TR Peak Gradient 17.0 mmHg Right Atrial Pressure 10.0 mmHg Pulmonary Artery Systolic Pressu 27.0 mmHg Right Ventricular Systolic Press 27.0 mmHg FINDINGS LEFT VENTRICLE Normal left ventricular size. Wall thickness is normal. The left ventricular ejection fractioon is between 45 and 55%. Cannot exclude possible posterior hypokinesis - study quality suboptimal for wall motion.. RIGHT VENTRICLE Normal right ventricular size and systolic function. LEFT ATRIUM The left atrial size is normal. RIGHT ATRIUM The right atrial size is normal. AORTA The aortic root and proximal ascending aorta are not well seen. MITRAL VALVE Mitral annular calcification is present. No MR seen. AORTIC VALVE Trileaflet aortic valve. No aortic valve stenosis or regurgitation. TRICUSPID VALVE The estimated pulmonary arterial pressure is 27mmHg. PULMONARY VALVE The pulmonary valve is not well visualized. VESSELS The inferior vena cava is normal in size. PERICARDIUM A small left sided pleural effusion is noted. Agustín Merrill MD (Electronically Signed) Final Date:08 April 2018 17:17
[2018-04-08] MEDS: Azithromycin Inj 500 MG in Sodium Chlor 0.9% Inj 250 ML IV.SIG SCH (22:02)
[2018-04-09] MEDS: Gabapentin 100 MG Capsule PO SCH (08:31)
[2018-04-09] MEDS: prednisoLONE Acetate 1% Opth Susp 5 ML Bottle RIGHT EYE SCH ×4 (08:32→20:54)
[2018-04-09] MEDS: Senna/Docusate Sodium 8.6/50 MG Tablet PO SCH ×2 (08:32→20:50)
[2018-04-09] MEDS: Loratadine 10 MG Tablet PO SCH (08:32)
[2018-04-09] MEDS: Lidocaine 5% Patch T-DERMAL SCH (08:32)
--- NOTE | 2018-04-09 10:50 | P.PNNS ---
Subjective Interval history: Pt awake and alert. No changes in clinical condition. Complains of neck soreness. He remains in a [place] J cervical collar. Some pain extending into right trapezius area. No radiculopathy in UEs. No paresthesias in UEs. He states he is ambulating. <HamiltonJay leger - Last Filed: 04/09/18 10:43> Physical Exam Vital signs: Vital Signs 04/08/18 12:00 04/08/18 12:55 04/08/18 13:41 Temperature 98.4 F Pulse Rate 93 H 79 Respiratory Rate 16 18 18 Blood Pressure 136/67 Pulse Oximetry 94 L 04/08/18 16:00 04/08/18 17:43 04/08/18 18:58 Temperature 98.0 F Pulse Rate 52 L Respiratory Rate 16 18 Blood Pressure 129/73 Pulse Oximetry 94 L 94 L 04/08/18 19:53 04/08/18 20:00 04/09/18 00:00 Temperature 97.4 F L 98.0 F Pulse Rate 52 L 84 78 Respiratory Rate 18 19 18 Blood Pressure 144/74 H 139/71 Pulse Oximetry 97 98 04/09/18 03:45 04/09/18 03:47 04/09/18 04:00 Temperature 97.5 F L Pulse Rate 95 H 77 Respiratory Rate 20 18 Blood Pressure 123/67 Pulse Oximetry 97 96 04/09/18 08:00 04/09/18 08:20 Temperature 97.3 F L Pulse Rate 81 85 Respiratory Rate 18 16 Blood Pressure 119/76 Pulse Oximetry 97 96 Intake & Output 04/08/18 04/09/18 04/09/18 18:59 06:59 18:59 Intake Total 250 / 250 Output Total 525 / 525 Balance -275 / -275 Weight 122 kg Intake: IV 250 / 250 Azithromycin Inj 500 MG In NS 250 / 250 Inj 250 ML @ 250 mls/hr IV.SIG Q24H [facility] Rx#:[id number] Output: Urine 525 / 525 Other: Date of Last Bowel Movement 04/07/18 04/07/18 04/07/18 - Constitutional no acute distress - Routine HEENT Exam Head: Present: normocephalic, atraumatic Eye: Present: PERRL. Absent: conjunctival icterus ENT: Present: oropharynx clear - Routine Neck Exam Absent: full ROM (Cervical spine immobilized in a [place] J collar.) - Routine Respiratory Exam Present: CTA bilaterally. Absent: rales, respiratory distress, rhonchi, wheezes - Routine Cardiovascular Exam Present: RRR, S1, S2. Absent: murmur - Routine Abdominal Exam Present: soft, normoactive bowel sounds. Absent: tenderness, rigid - Routine Extremities Exam Absent: cyanosis - Routine Skin Exam Absent: cyanosis, erythema - Routine Neurological Exam Present: alert, oriented X3, moving all extremities. Absent: sensory deficit, motor deficit - Detailed Neurological Exam: Coma Scale Eye Opening: Spontaneous Verbal Response: Oriented Motor Response: Obey commands Savi Coma Scale Total: 15 - Routine Psychiatric Exam Present: normal affect, cooperative, good judgment. Absent: agitated <Jay Mead - Last Filed: 04/09/18 10:43> Vital signs: Vital Signs 04/08/18 13:41 04/08/18 16:00 04/08/18 17:43 Temperature 98.0 F Pulse Rate 79 52 L Respiratory Rate 18 16 18 Blood Pressure 129/73 Pulse Oximetry 94 L 04/08/18 18:58 04/08/18 19:53 04/08/18 20:00 Temperature 97.4 F L Pulse Rate 52 L 84 Respiratory Rate 18 19 Blood Pressure 144/74 H Pulse Oximetry 94 L 97 04/09/18 00:00 04/09/18 03:45 04/09/18 03:47 Temperature 98.0 F Pulse Rate 78 95 H Respiratory Rate 18 20 Blood Pressure 139/71 Pulse Oximetry 98 97 04/09/18 04:00 04/09/18 08:00 04/09/18 08:20 Temperature 97.5 F L 97.3 F L Pulse Rate 77 81 85 Respiratory Rate 18 18 16 Blood Pressure 123/67 119/76 Pulse Oximetry 96 97 96 04/09/18 12:00 04/09/18 12:11 Temperature 98.6 F Pulse Rate 115 H 117 H Respiratory Rate 20 23 Blood Pressure 131/81 Pulse Oximetry 95 Intake & Output 04/08/18 04/09/18 04/09/18 18:59 06:59 18:59 Intake Total 250 / 250 Output Total 525 / 525 450 / 450 Balance -275 / -275 -450 / -450 Weight 122 kg Intake: IV 250 / 250 Azithromycin Inj 500 MG In NS 250 / 250 Inj 250 ML @ 250 mls/hr IV.SIG Q24H [facility] Rx#:[id number] Output: Urine 525 / 525 450 / 450 Other: Date of Last Bowel Movement 04/07/18 04/07/18 04/07/18 <Dany Barryit - Last Filed: 04/09/18 13:30> Assessment and Plan - Assessment (1) Fracture of thoracic spine Code(s): S22.009A - Unspecified fracture of unspecified thoracic vertebra, initial encounter for closed fracture Status: Acute Qualifiers: Encounter type: initial encounter Thoracic vertebra fracture level: T7 Fracture type: closed Fracture morphology: other fracture Qualified Code(s) : S22.068A - Other fracture of T7-T8 thoracic vertebra, initial encounter for closed fracture (2) Stenosis of cervical spine with myelopathy Code(s): M47.12 - Other spondylosis with myelopathy, cervical region Status: Acute (3) Concussion Code(s): S06.0X9A - Concussion with loss of consciousness of unspecified duration, initial encounter Status: Acute Qualifiers: Encounter type: initial encounter Loss of consciousness presence/duration: with LOC of unspecified duration Qualified Code(s): S06.0X9A - Concussion with loss of consciousness of unspecified duration, initial encounter (4) Cervical spine fracture Code(s): S12.9XXA - Fracture of neck, unspecified, initial encounter Status: Acute Qualifiers: Cervical vertebra fracture level: C2 Fracture type: closed Fracture morphology: type II dens Fracture alignment: nondisplaced (5) Pulmonary contusion Code(s): S27.329A - Contusion of lung, unspecified, initial encounter Status: Acute Qualifiers: Encounter type: initial encounter Laterality: left Qualified Code(s): S27.321A - Contusion of lung, unilateral, initial encounter (6) Ribs, multiple fractures Code(s): S22.49XA - Multiple fractures of ribs, unspecified side, initial encounter for closed fracture Status: Acute Qualifiers: Encounter type: initial encounter Fracture type: closed Laterality: left Qualified Code(s): S22.42XA - Multiple fractures of ribs, left side, initial encounter for closed fracture - Plan 57 year old male with a C2 type II nondisplaced odontoid fracture and spinal cord contusion from stenosis related to disc osteophyte complex at C3-4, C4-5 and C5-[address] Barry reports: I again discussed with him the alternatives of treatment for the C2 fracture, including bracing of the cervical spine with a halo brace versus surgical procedure with placement of an odontoid screw. Treatment for the multilevel cervical stenosis would entail an anterior C3-4, C4-5 and C-6 microdiscectomy with fusion and plate placement. The details of the procedure alternatives risks potential complications were discussed with him, including its indications, alternatives, risks, and potential complications. Risks and potential complications include, but are not limited to, infection, blood loss, CSF leak, partial or complete loss of sight in one or both eyes, paresis, paralysis, permanent pain or difficulty swallowing, loss of bowel or bladder function, complications from anesthesia, blood clot, stroke, myocardial infarction, or even . The possibility of nonoperative treatment has been offered. Continue Narcotics as needed for pain control and Pulmonary: aggressive pulmonary toilette, nasotracheal suction, and breathing treatments with nebulizers. Daily PT and OT Renal: Continue to monitor closely urine output, BUN and creatinine Endocrine: Continue to Monitor serial Acu checks and SSI as needed in detail ID continue to monitor for signs of infection Continue Protonix for stress ulcer prophylaxis Continue Kul[place] hose and SCD's for DVT prophylaxis Cardiology has cleared pt at a moderate risk of complications. I have also discussed the risks of the procedure which include but are not limited to bleeding, infection, muscle weakness, voice hoarseness, difficulty swallowing, heart attack, stroke, blood clots in arms, legs, lungs, among others. Pt states he understands the risks and wants to proceed. He is scheduled for tomorrow for an anterior 2 screw placement and anterior C3/C4, C4/C5, and C5/C6 microdiscectomy with anterior cervical fusion with cages and cervical plate placement. <Jay Mead - Last Filed: 04/09/18 10:43> - Assessment (1) Concussion Code(s): S06.0X9A - Concussion with loss of consciousness of unspecified duration, initial encounter Status: Acute Qualifiers: Encounter type: initial encounter Loss of consciousness presence/duration: with LOC of unspecified duration Qualified Code(s): S06.0X9A - Concussion with loss of consciousness of unspecified duration, initial encounter (2) Cervical spine fracture Code(s): S12.9XXA - Fracture of neck, unspecified, initial encounter Status: Acute Qualifiers: Cervical vertebra fracture level: C2 Fracture type: closed Fracture morphology: type II dens Fracture alignment: nondisplaced (3) Ribs, multiple fractures Code(s): S22.49XA - Multiple fractures of ribs, unspecified side, initial encounter for closed fracture Status: Acute Qualifiers: Encounter type: initial encounter Fracture type: closed Laterality: left Qualified Code(s): S22.42XA - Multiple fractures of ribs, left side, initial encounter for closed fracture (4) Fracture of thoracic spine Code(s): S22.009A - Unspecified fracture of unspecified thoracic vertebra, initial encounter for closed fracture Status: Acute Qualifiers: Encounter type: initial encounter Thoracic vertebra fracture level: T7 Fracture type: closed Fracture morphology: other fracture Qualified Code(s) : S22.068A - Other fracture of T7-T8 thoracic vertebra, initial encounter for closed fracture (5) Stenosis of cervical spine with myelopathy Code(s): M47.12 - Other spondylosis with myelopathy, cervical region Status: Acute - Attending Attestation The exam, history, and the medical decision-making described in the above note were completed with the assistance of the mid-level provider. I reviewed and agree with the findings presented. I attest that I had a [id number] encounter with the patient on the same day, and personally performed and documented my assessment and findings in the medical record. Discussed at length with patient as well as his at bedside surgical treatment plan along the risks and benefits involved. The plan is for anterior C3-4, C4-5 and C5-6 microdiscectomy with fusion to decompress multilevel stenosis with cord compression and also C2 odontoid screw placement to address the fracture. Given his loss of cervical lordosis with degenerative changes and obese habitus at times it can be difficult to get the C2 screw alignment for the screw placement. If the C2 odontoid screw cannot be placed then we will proceed with a halo placement. All other questions were answered and they requested we proceed and give informed consent. Surgery scheduled for tomorrow morning. <Adriano Barry - Last Filed: 04/09/18 13:30>
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
[2018-04-09 15:33] LABS: Activated Partial Thrombo Time 26.5 sec (24.3-30.1); Prothrombin Time 10.2 sec (9.8-11.6)
[2018-04-09] MEDS: Azithromycin Inj 500 MG in Sodium Chlor 0.9% Inj 250 ML IV.SIG SCH (20:57)
[2018-04-09 22:37] LABS: Amorphous Sediment,Urine Moderate /hpf; Bilirubin,Urine Negative (Negative); Clarity,Urine Cloudy (Clear); Color,Urine Yellow (Yellw/Straw); Glucose,Urine (UA) Negative (Negative); Leukocyte Esterase,Urine Negative (Negative); Mucus,Urine Few /lpf (Occasional); Nitrite,Urine Negative (Negative); Specific Gravity,Urine 1.019 (1.002-1.035)
[2018-04-10] MEDS: Potassium Chloride Inj 10 MEQ in Sod Chloride 0.9% Inj 1,000 ML IV.CONT SCH (03:05)
[2018-04-10] MEDS ORDERED: Chlorhexidine Gluconate 2% 1 Pack (2 Cloths) TOPICAL ONE (03:53)
[2018-04-10] MEDS ORDERED: Sodium Chlor 0.9% Inj 500 ML IV.SIG SCH (04:00)
[2018-04-10] MEDS ORDERED: Thrombin Topical Soln 5,000 UNIT Vial TOPICAL ONE ×2 (06:58→11:28)
[2018-04-10] MEDS ORDERED: Gelatin Size 100 Topical Foam ONE ×2 (06:59→11:28)
[2018-04-10] MEDS ORDERED: Bupivacaine/Epinephrine Inj 0.25% 50 ML Vial ONE (07:00)
[2018-04-10] MEDS ORDERED: Propofol Inj 500 MG/50 ML Vial ONE ×3 (07:39→12:32)
[2018-04-10] MEDS ORDERED: Bupivacaine/Epinephrine 0.5% Inj 50 ML Vial ONE (07:42)
[2018-04-10] MEDS ORDERED: Vancomycin Inj 1,000 MG in Sodium Chlor 0.9% Inj 250 ML IV.SIG SCH (08:00)
[2018-04-10] MEDS: Loratadine 10 MG Tablet PO SCH (08:30)
[2018-04-10] MEDS: Senna/Docusate Sodium 8.6/50 MG Tablet PO SCH ×2 (08:32→20:26)
[2018-04-10] MEDS: prednisoLONE Acetate 1% Opth Susp 5 ML Bottle RIGHT EYE SCH ×2 (08:33→22:44)
[2018-04-10] MEDS ORDERED: Lidocaine PF 1% Inj 5 ML Syringe INFILTRATN ONE (08:45)
[2018-04-10] MEDS: Lidocaine 5% Patch T-DERMAL SCH (11:01)
[2018-04-10] MEDS: Gabapentin 100 MG Capsule PO SCH (11:01)
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
[2018-04-10] MEDS ORDERED: Ketorolac Inj 30 MG/ML (IVP) Vial IV.PUSH ONE (13:00)
[2018-04-10] MEDS ORDERED: Menthol 5.8 MG Lozenge BUCCAL PRN (13:23)
[2018-04-10] MEDS ORDERED: Calcium Gluconate Inj 1 GM in Sodium Chlor 0.9% Inj 100 ML IV.SIG PRN (13:23)
[2018-04-10] MEDS ORDERED: Magnesium Sulfate Inj 2 GM in Sodium Chlor 0.9% Inj 96 ML IV.SIG PRN (13:23)
[2018-04-10] MEDS ORDERED: Potassium Chlor 20 mEq Premix 20 MEQ/100 ML PIGGYBACK IV.SIG PRN (13:23)
[2018-04-10] MEDS ORDERED: Aluminum/Magnesium/Simethacone Susp 30 ML UDC PO PRN (13:23)
[2018-04-10] MEDS ORDERED: Bisacodyl 10 MG Supp RECTAL PRN (13:23)
--- NOTE | 2018-04-10 13:30 | P.OP ---
- Preoperative Diagnosis (1) Stenosis of cervical spine with myelopathy (2) Cervical spine fracture Comment: C2 type II odontoid fracture Date of procedure: 04/10/18 Procedure: Anterior cervical C3-4, C4-5 and C5-6 microdiscectomy with interbody autograft fusion; anterior C2 odontoid screw placement; anterior C3-6 cervical plate placed; C3-4, C4-5 and C5-6 interbody cage placement; microsurgical technique Anesthesia: GETA Surgeon: Adriano Barry MD Cellophane Bath Mixer: Mary Lopez Estimated blood loss (mL): 100 Operation and Findings: Following administration of general endotracheal anesthesia maintaining the neck in a neutral position in a [place] Ira J collar, the patient received a gram of vancomycin and Decadron 10 mg intravenously. Sequential compression devices and Morgan catheter were placed in supine position on a Tomi table and all pressure points adequately padded. The head secured in a donut and anterior cervical region then shaved and prepped with Chloraprep and sterilely draped with Ioban along with the usual sterile draping. A longitudinal skin incision at the anterior border sternocleidomastoid on the right side of the neck was then made after infiltrating the skin with 0.5% Marcaine with epinephrine solution extending down through the platysma. At the anterior border of the sternocleidomastoid further dissection was undertaken developing a plane between the carotid sheath laterally and the trachea esophagus medially. The prevertebral fascia was exposed and dissected out. The medial attachments of the longus colli muscles were detached and a self-retaining retractor used for exposure. The C3-4, C4-5 and C5-6 disc space was localized with a marking the disc space and using lateral fluoroscopy. [place] distraction screws 14 mm length were placed one in the C3 and one in the C6 body interbody distraction and exposure. There was significant disc degeneration with disc height collapse and anterior osteophytes noted at all 3 levels and the osteophytes were resected with a Leksell and annulus incised with a 15 blade and further dissection undertaken using microtechnique with microscope magnification. Diskectomy was undertaken with pituitaries and the endplates were also decorticated with curettes and drill bit. And more posteriorly there was disk osteophyte complex compressing the thecal sac along with a significant uncovertebral joint hypertrophy with foraminal stenosis which was decompressed along with removal of the posterior longitudinal ligaments at C3-4, C4-5 and C5- 6 levels. The foramen was decompressed bilaterally using a Kerrison's and palpation with a nerve hook, the exiting nerve roots were felt to be free. The area was then copiously irrigated. Patient had a loss of cervical lordosis with some kyphosis along with the big chest and obese habitus which made the C2 odontoid screw trajectory more difficult. By performing a multilevel anterior and posterior longitudinal ligament resection I was able to extend the neck little more and localized based the C2 vertebral body with a FluGen guide. Using an AP and lateral fluoroscopy drill trajectory with the flexible drill was undertaken extending to the dens above the fracture. Subsequently 34 mm lag screw was then placed with good odontoid to C2 body maintained alignment crossing the fracture line. I then placed Peek cages packed with local autograft bone at the C3-4, C4-5 and C5-6 interspaces under fluoroscopy guidance. [place] distraction pins were removed and the holes plugged with Gelfoam for hemostasis. In order to facilitate the fusion and provide stabilization, a Precision spine cervical plate was then placed with two 16 mm variable angle screws in the C3 body, one in the C4 and one in the C5 body and two 16 mm fixed angle screws in the C6 body. The plate screw locking mechanism was then engaged. AP and lateral fluoroscopy confirmed good placement of the construct and the retractor was then removed. Muscular bleeding points were cauterized with bipolar cautery and Gelfoam was then also used for hemostasis which was removed. The platysma was then approximated using 3-0 Vicryl interrupted stitches and 3-0 Vicryl subcuticular stitch also placed in an interrupted fashion, and final skin closure was with Mastisol and Steri-Strips. Sterile dressing was then applied. The neck immobilized in a [place] Ira J collar and the patient was then extubated and taken to the recovery room. There are no intraoperative complications and all sponge and needle counts were correct at the end of procedure. Estimated blood loss was about 100 cc. The patient did undergo intraoperative neurologic monitoring which remained stable throughout the surgery.
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
[2018-04-10] MEDS ORDERED: fentaNYL Citrate Inj 100 MCG/2 ML Ampul ONE ×2 (14:11)
[2018-04-10 14:27] LABS: Baso % (Auto) 0.3 % (0.0-2.0); Eos # (Auto) 0.1 th/mm3 (0.0-0.4); Eos % (Auto) 0.8 % (0.0-4.0); Hematocrit 38.2 % (39.0-51.0); Hemoglobin 13.4 gm/dL (13.0-17.0); Lymph # (Auto) 0.8 th/mm3 (1.0-4.8); Lymph % (Auto) 9.7 % (9.0-44.0); Mean Corpuscular HGB Conc 35.2 % (32.0-36.0); Mean Corpuscular Hemoglobin 31.2 pg (27.0-34.0); Mean Corpuscular Volume 88.7 fL (80.0-100.0); Mean Platelet Volume 8.3 fL (7.0-11.0); Mono # (Auto) 0.5 th/mm3 (0.0-0.9); Mono % (Auto) 6.4 % (0.0-8.0); Neut # (Auto) 6.4 th/mm3 (1.8-7.7); Neut % (Auto) 82.8 % (16.0-70.0); Platelet Count 217 th/mm3 (150-450); Red Cell Distribution Width 13.3 % (11.6-17.2); White Blood Count 7.7 th/mm3 (4.0-11.0)
[2018-04-10 14:46] LABS: Anion Gap 9 meq/L (5-15); Blood Urea Nitrogen 14 mg/dL (7-18); Calcium 8.2 mg/dL (8.5-10.1); Carbon Dioxide 26.6 meq/L (21.0-32.0); Chloride 102 meq/L (98-107); Glomerular Filtration Rate Greater Than 89 mL/min (>89); Glucose,Random 141 mg/dL (74-106); Sodium 138 meq/L (136-145)
[2018-04-10 14:52] LABS: Potassium 5.2 meq/L (3.5-5.1)
[2018-04-10 15:14] LABS: Platelet Estimate Normal (Normal); Platelet Morphology Normal (Normal); RBC Morphology Normal (Normal)
[2018-04-10] MEDS: Morphine Inj 4 MG/ML Vial IV.PUSH PRN (16:14)
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
[2018-04-10] MEDS: Azithromycin Inj 500 MG in Sodium Chlor 0.9% Inj 250 ML IV.SIG SCH (20:32)
[2018-04-11] MEDS: Morphine Inj 4 MG/ML Vial IV.PUSH PRN ×2 (08:17→21:09)
[2018-04-11] MEDS: Gabapentin 100 MG Capsule PO SCH (08:22)
[2018-04-11] MEDS: Senna/Docusate Sodium 8.6/50 MG Tablet PO SCH (08:23)
[2018-04-11] MEDS: Loratadine 10 MG Tablet PO SCH (08:23)
[2018-04-11] MEDS: Lidocaine 5% Patch T-DERMAL SCH (08:24)
[2018-04-11] MEDS: prednisoLONE Acetate 1% Opth Susp 5 ML Bottle RIGHT EYE SCH ×7 (08:26→21:10)
--- NOTE | 2018-04-11 09:18 | P.PNNS ---
Subjective Interval history: Underwent odontoid screw fixation and C3-6 ACDF to address his acute fracture and his chronic degenerative cervical stenosis simultaneously. This morning, he reports feeling fairly good. He does not have much pain when he is using his medication. He is tolerating a liquid diet well. He denies any new numbness, tingling, weakness, etc. Physical Exam Vital signs: Vital Signs 04/10/18 13:58 04/10/18 14:00 04/10/18 14:15 Temperature 98.1 F Pulse Rate 102 H 102 H 100 H Respiratory Rate 14 14 20 Blood Pressure 122/58 L 117/57 L 135/65 Pulse Oximetry 93 L 93 L 95 04/10/18 14:30 04/10/18 14:45 04/10/18 15:00 Temperature Pulse Rate 92 H 94 H 97 H Respiratory Rate 20 25 H 18 Blood Pressure 131/65 153/74 H 138/71 Pulse Oximetry 94 L 94 L 97 04/10/18 15:30 04/10/18 16:00 04/10/18 17:00 Temperature Pulse Rate 86 82 Respiratory Rate 24 20 Blood Pressure 140/67 143/71 H Pulse Oximetry 97 98 99 04/10/18 17:30 04/10/18 18:00 04/10/18 18:30 Temperature Pulse Rate 84 85 87 Respiratory Rate 16 16 16 Blood Pressure 127/70 135/65 147/76 H Pulse Oximetry 99 100 95 04/10/18 19:00 04/10/18 20:00 04/10/18 22:00 Temperature 97.6 F Pulse Rate 86 Respiratory Rate 16 16 16 Blood Pressure 141/75 H Pulse Oximetry 95 94 L 93 L 04/10/18 22:59 04/11/18 00:00 04/11/18 08:59 Temperature Pulse Rate Respiratory Rate 16 Blood Pressure Pulse Oximetry 94 L 97 Intake & Output 04/10/18 04/11/18 04/11/18 18:59 06:59 18:59 Intake Total 1000 / 1000 2450 / 2450 Output Total 2700 / 2700 3450 / 3450 Balance -1700 / -1700 -1000 / -1000 Weight 119.4 kg Intake: IV 1250 / 1250 LR 1000 mL Inj 1,000 ML @ 100 1000 / 1000 mls/hr IV.CONT .Q10H [facility] Rx#: [id number] Azithromycin Inj 500 MG In NS 250 / 250 Inj 250 ML @ 250 mls/hr IV.SIG Q24H [facility] Rx#:[id number] Oral 1200 / 1200 Anesthesia Amount 1000 / 1000 Output: Estimated Blood Loss 100 / 100 Urine Amount (Catheter) 2600 / 2600 3450 / 3450 Indwelling Urethral Catheter 2600 / 2600 3450 / 3450 Other: Date of Last Bowel Movement 04/07/18 - Routine Neurological Exam Alert and conversant. Face symmetric. Follows commands briskly 4. Strength is excellent in all 4 extremities. Sensation intact throughout. [place] J collar in place. Incision clean. - Urinary Catheter Management Indwelling Urethral Catheter Cath placed during this visit: yes Reason for continuing: Hourly intake/output Insertion date: 04/10/18 Assessment and Plan - Assessment (1) Concussion Code(s): S06.0X9A - Concussion with loss of consciousness of unspecified duration, initial encounter Status: Acute Qualifiers: Encounter type: initial encounter Loss of consciousness presence/duration: with LOC of unspecified duration Qualified Code(s): S06.0X9A - Concussion with loss of consciousness of unspecified duration, initial encounter (2) Cervical spine fracture Code(s): S12.9XXA - Fracture of neck, unspecified, initial encounter Status: Acute Qualifiers: Cervical vertebra fracture level: C2 Fracture type: closed Fracture morphology: type II dens Fracture alignment: nondisplaced (3) Ribs, multiple fractures Code(s): S22.49XA - Multiple fractures of ribs, unspecified side, initial encounter for closed fracture Status: Acute Qualifiers: Encounter type: initial encounter Fracture type: closed Laterality: left Qualified Code(s): S22.42XA - Multiple fractures of ribs, left side, initial encounter for closed fracture (4) Fracture of thoracic spine Code(s): S22.009A - Unspecified fracture of unspecified thoracic vertebra, initial encounter for closed fracture Status: Acute Qualifiers: Encounter type: initial encounter Thoracic vertebra fracture level: T7 Fracture type: closed Fracture morphology: other fracture Qualified Code(s) : S22.068A - Other fracture of T7-T8 thoracic vertebra, initial encounter for closed fracture (5) Stenosis of cervical spine with myelopathy Code(s): M47.12 - Other spondylosis with myelopathy, cervical region Status: Acute - Plan 57 year old male with a C2 type II nondisplaced odontoid fracture and spinal cord contusion from stenosis related to disc osteophyte complex at C3-4, C4-5 and C5-6 levels with cord compression. Now status post odontoid screw fixation and C3-6 ACDF fixation. He is doing very well, has minimal pain, stable neurologic exam, and is tolerating liquids. Can begin working with PT. We will advance his diet order to regular and advised his nurse to advance him slowly as tolerated. Continue Narcotics as needed for pain control Pulmonary: aggressive pulmonary toilette, nasotracheal suction, and breathing treatments with nebulizers. Daily PT and OT Renal: Continue to monitor closely urine output, BUN and creatinine Endocrine: Continue to Monitor serial Acu checks and SSI as needed in detail ID continue to monitor for signs of infection Continue Protonix for stress ulcer prophylaxis Continue Kulwant johnson and SCD's for DVT prophylaxis .
--- NOTE | 2018-04-11 12:03 | P.PNCC ---
Subjective 24 Hour Review/Hospital Course: 04/11/2018 Status post C2 fracture repair Patient is neurologically fully intact Dressing dry c-collar in place Patient can transfer to floor and then be discharged as per neurosurgery Objective Vital Signs / I&O: Vital Signs 04/10/18 13:58 04/10/18 14:00 04/10/18 14:15 Temperature 98.1 F Pulse Rate 102 H 102 H 100 H Respiratory Rate 14 14 20 Blood Pressure 122/58 L 117/57 L 135/65 Pulse Oximetry 93 L 93 L 95 04/10/18 14:30 04/10/18 14:45 04/10/18 15:00 Temperature Pulse Rate 92 H 94 H 97 H Respiratory Rate 20 25 H 18 Blood Pressure 131/65 153/74 H 138/71 Pulse Oximetry 94 L 94 L 97 04/10/18 15:30 04/10/18 16:00 04/10/18 17:00 Temperature Pulse Rate 86 82 Respiratory Rate 24 20 Blood Pressure 140/67 143/71 H Pulse Oximetry 97 98 99 04/10/18 17:30 04/10/18 18:00 04/10/18 18:30 Temperature Pulse Rate 84 85 87 Respiratory Rate 16 16 16 Blood Pressure 127/70 135/65 147/76 H Pulse Oximetry 99 100 95 04/10/18 19:00 04/10/18 20:00 04/10/18 22:00 Temperature 97.6 F Pulse Rate 86 Respiratory Rate 16 16 16 Blood Pressure 141/75 H Pulse Oximetry 95 94 L 93 L 04/10/18 22:59 04/11/18 00:00 04/11/18 08:00 Temperature Pulse Rate 94 H Respiratory Rate 16 Blood Pressure Pulse Oximetry 94 L 04/11/18 08:45 04/11/18 08:59 04/11/18 10:00 Temperature Pulse Rate 100 H Respiratory Rate 20 Blood Pressure Pulse Oximetry 97 Intake & Output 04/10/18 04/11/18 04/11/18 18:59 06:59 18:59 Intake Total 1000 / 1000 2450 / 2450 Output Total 2700 / 2700 3450 / 3450 Balance -1700 / -1700 -1000 / -1000 Weight 119.4 kg Intake: IV 1250 / 1250 LR 1000 mL Inj 1,000 ML @ 100 1000 / 1000 mls/hr IV.CONT .Q10H [facility] Rx#: [id number] Azithromycin Inj 500 MG In NS 250 / 250 Inj 250 ML @ 250 mls/hr IV.SIG Q24H [facility] Rx#:[id number] Oral 1200 / 1200 Anesthesia Amount 1000 / 1000 Output: Estimated Blood Loss 100 / 100 Urine Amount (Catheter) 2600 / 2600 3450 / 3450 Indwelling Urethral Catheter 2600 / 2600 3450 / 3450 Other: Date of Last Bowel Movement 04/07/18 Result Diagrams: 04/10/18 14:15 04/10/18 14:15 Imaging: Impressions Cervical Spine X-Ray 04/10/18 00:00 CONCLUSION: Status post placement of surgical hardware as described above. Disinhibition Score: 14.00 Aggression Score: 14.00 - Exam [employer]: Awake alert oriented neurologically fully intact Hemodynamic/Cardiac: Hemodynamically stable Pulmonary/Respiratory: Bilateral good breath sounds good inspiratory effort Abdomen/GI Nutrition: Abdomen soft active bowel sounds patient tolerating diet well Assessment and Plan - Assessment (1) Fracture of thoracic spine Code(s): S22.009A - Unspecified fracture of unspecified thoracic vertebra, initial encounter for closed fracture Status: Acute (2) Concussion Code(s): S06.0X9A - Concussion with loss of consciousness of unspecified duration, initial encounter Status: Acute (3) Cervical spine fracture Code(s): S12.9XXA - Fracture of neck, unspecified, initial encounter Status: Acute (4) Pulmonary contusion Code(s): S27.329A - Contusion of lung, unspecified, initial encounter Status: Acute (5) Ribs, multiple fractures Code(s): S22.49XA - Multiple fractures of ribs, unspecified side, initial encounter for closed fracture Status: Acute Attestation: Critical care at 32 minutes (1) Fracture of thoracic spine Qualifiers: Encounter type: initial encounter Thoracic vertebra fracture level: T7 Fracture type: closed Fracture morphology: other fracture Qualified Code(s): S22.068A - Other fracture of T7-T8 thoracic vertebra, initial encounter for closed fracture (2) Concussion Qualifiers: Encounter type: initial encounter Loss of consciousness presence/duration: with LOC of unspecified duration Qualified Code(s): S06.0X9A - Concussion with loss of consciousness of unspecified duration, initial encounter (3) Cervical spine fracture Qualifiers: Cervical vertebra fracture level: C2 Fracture type: closed Fracture morphology: type II dens Fracture alignment: nondisplaced (4) Pulmonary contusion Qualifiers: Encounter type: initial encounter Laterality: left Qualified Code(s): S27.321A - Contusion of lung, unilateral, initial encounter (5) Ribs, multiple fractures Qualifiers: Encounter type: initial encounter Fracture type: closed Laterality: left Qualified Code(s): S22.42XA - Multiple fractures of ribs, left side, initial encounter for closed fracture
--- NOTE | 2018-04-11 17:39 | P.PNCA ---
Subjective Interval history: alert in nad, denies chest pain or dyspnea Physical Exam Vital signs: Vital Signs 04/10/18 18:00 04/10/18 18:30 04/10/18 19:00 Temperature 97.6 F Pulse Rate 85 87 86 Respiratory Rate 16 16 16 Blood Pressure 135/65 147/76 H 141/75 H Pulse Oximetry 100 95 95 04/10/18 20:00 04/10/18 22:00 04/10/18 22:59 Temperature Pulse Rate Respiratory Rate 16 16 Blood Pressure Pulse Oximetry 94 L 93 L 94 L 04/11/18 00:00 04/11/18 08:00 04/11/18 08:45 Temperature Pulse Rate 94 H Respiratory Rate 16 20 Blood Pressure Pulse Oximetry 04/11/18 08:59 04/11/18 10:00 04/11/18 12:00 Temperature Pulse Rate 100 H 104 H Respiratory Rate Blood Pressure Pulse Oximetry 97 04/11/18 12:29 04/11/18 15:48 Temperature Pulse Rate Respiratory Rate 25 H 18 Blood Pressure Pulse Oximetry Intake & Output 04/10/18 04/11/18 04/11/18 18:59 06:59 18:59 Intake Total 1000 / 1000 2450 / 2450 Output Total 2700 / 2700 3450 / 3450 Balance -1700 / -1700 -1000 / -1000 Weight 119.4 kg Intake: IV 1250 / 1250 LR 1000 mL Inj 1,000 ML @ 100 1000 / 1000 mls/hr IV.CONT .Q10H [facility] Rx#: [id number] Azithromycin Inj 500 MG In NS 250 / 250 Inj 250 ML @ 250 mls/hr IV.SIG Q24H [facility] Rx#:[id number] Oral 1200 / 1200 Anesthesia Amount 1000 / 1000 Output: Estimated Blood Loss 100 / 100 Urine Amount (Catheter) 2600 / 2600 3450 / 3450 Indwelling Urethral Catheter 2600 / 2600 3450 / 3450 Other: Date of Last Bowel Movement 04/07/18 - Urinary Catheter Management Indwelling Urethral Catheter Cath placed during this visit: yes, but has since been removed by the nurse Reason for continuing: Hourly intake/output Insertion date: 04/10/18 Removal date: 04/11/18 Removal time: 12:45 Assessment and Plan - Plan 1.) moderate risk for noncardiac surgery - pod#1, assymptomatic from cv standpoint 2.) CAD - assymptomatic, continue lipitor 20 mg hs, aspirin held for noncardiac surgery; restart ousmane if/when cleared by Dr Adriano Gambino
[2018-04-11] MEDS: Azithromycin Inj 500 MG in Sodium Chlor 0.9% Inj 250 ML IV.SIG SCH (21:09)
[2018-04-12] MEDS: Senna/Docusate Sodium 8.6/50 MG Tablet PO SCH ×3 (00:13→20:33)
[2018-04-12] MEDS: Potassium Chloride Inj 10 MEQ in Sod Chloride 0.9% Inj 1,000 ML IV.CONT SCH ×4 (07:00→15:21)
--- NOTE | 2018-04-12 07:24 | P.DCO ---
- Physical Therapy Order: Evaluate and treat, Improve ambulation, Strength and gait training - Home Health Nursing Order: Nursing assessment with vital signs - Certification I have seen patient César Bar on 04/12/18. My clinical findings support the need for the requested home health care services because: Deconditioned with increased weakness, High risk of falls I certify that my clinical findings support that this patient is homebound because: Post-op weakness
[2018-04-12] MEDS: Morphine Inj 4 MG/ML Vial IV.PUSH PRN ×3 (09:26→20:37)
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
[2018-04-12] MEDS: Loratadine 10 MG Tablet PO SCH (11:54)
[2018-04-12] MEDS: Gabapentin 100 MG Capsule PO SCH (11:56)
[2018-04-12] MEDS: prednisoLONE Acetate 1% Opth Susp 5 ML Bottle RIGHT EYE SCH ×4 (11:58→20:33)
[2018-04-12] MEDS: Enoxaparin Inj 40 MG/0.4 ML Syringe SQ SCH (11:59)
--- NOTE | 2018-04-12 12:14 | P.PNCA ---
Subjective Interval history: alert in nad Physical Exam Vital signs: Vital Signs 04/11/18 12:29 04/11/18 15:48 04/11/18 16:00 Temperature Pulse Rate Respiratory Rate 25 H 18 18 Blood Pressure Pulse Oximetry 04/11/18 20:00 04/12/18 00:00 04/12/18 00:05 Temperature 96.5 F L 97.6 F Pulse Rate 88 77 67 Respiratory Rate 18 20 Blood Pressure 137/64 132/76 Pulse Oximetry 95 97 04/12/18 01:30 04/12/18 05:30 04/12/18 08:00 Temperature 97.6 F Pulse Rate 95 H Respiratory Rate 17 17 16 Blood Pressure 106/66 Pulse Oximetry 96 Intake & Output 04/11/18 04/12/18 04/12/18 18:59 06:59 18:59 Intake Total 325 / 325 250 / 250 1000 / 1000 Balance 325 / 325 250 / 250 1000 / 1000 Weight 118.6 kg Intake: IV 325 / 325 250 / 250 1000 / 1000 Azithromycin Inj 500 MG In NS 250 / 250 Inj 250 ML @ 250 mls/hr IV.SIG Q24H [facility] Rx#:[id number] Oral 0 / 0 Other: # Voids 2 1 Date of Last Bowel Movement 04/11/18 # Bowel Movements 0 1 - Urinary Catheter Management Indwelling Urethral Catheter Cath placed during this visit: yes, but has since been removed by the nurse Reason for continuing: Hourly intake/output Insertion date: 04/10/18 Removal date: 04/11/18 Removal time: 12:45 Assessment and Plan - Plan 1.) moderate risk for noncardiac surgery - pod#2, assymptomatic from cv standpoint 2.) CAD - assymptomatic, continue lipitor 20 mg hs, aspirin held for noncardiac surgery; restart ousmane if/when cleared by Dr Adriano Gambino
[2018-04-12] MEDS: Azithromycin Inj 500 MG in Sodium Chlor 0.9% Inj 250 ML IV.SIG SCH (20:31)
[2018-04-13 05:16] LABS: Baso % (Auto) 0.4 % (0.0-2.0); Eos # (Auto) 0.1 th/mm3 (0.0-0.4); Eos % (Auto) 1.1 % (0.0-4.0); Hematocrit 36.5 % (39.0-51.0); Hemoglobin 12.6 gm/dL (13.0-17.0); Lymph # (Auto) 0.7 th/mm3 (1.0-4.8); Lymph % (Auto) 12.3 % (9.0-44.0); Mean Corpuscular HGB Conc 34.5 % (32.0-36.0); Mean Corpuscular Hemoglobin 30.1 pg (27.0-34.0); Mean Corpuscular Volume 87.2 fL (80.0-100.0); Mean Platelet Volume 8.1 fL (7.0-11.0); Mono # (Auto) 0.8 th/mm3 (0.0-0.9); Mono % (Auto) 13.7 % (0.0-8.0); Neut % (Auto) 72.5 % (16.0-70.0); Platelet Count 271 th/mm3 (150-450); Red Blood Count 4.19 mil/mm3 (4.50-5.90); Red Cell Distribution Width 13.2 % (11.6-17.2); White Blood Count 5.6 th/mm3 (4.0-11.0)
[2018-04-13 05:26] LABS: Anion Gap 12 meq/L (5-15); Blood Urea Nitrogen 13 mg/dL (7-18); Calcium 8.3 mg/dL (8.5-10.1); Carbon Dioxide 23.9 meq/L (21.0-32.0); Chloride 107 meq/L (98-107); Glomerular Filtration Rate Greater Than 89 mL/min (>89); Glucose,Random 99 mg/dL (74-106); Potassium 3.6 meq/L (3.5-5.1); Sodium 143 meq/L (136-145)
[2018-04-13] MEDS: Senna/Docusate Sodium 8.6/50 MG Tablet PO SCH ×2 (08:48→20:04)
[2018-04-13] MEDS: Gabapentin 100 MG Capsule PO SCH (08:48)
[2018-04-13] MEDS: Loratadine 10 MG Tablet PO SCH (08:49)
[2018-04-13] MEDS: Enoxaparin Inj 40 MG/0.4 ML Syringe SQ SCH (09:01)
--- NOTE | 2018-04-13 10:55 | P.PNNS ---
Subjective Interval history: Underwent odontoid screw fixation and C3-6 ACDF to address his acute fracture and his chronic degenerative cervical stenosis simultaneously. 04/13: reports of difficulty swallowing, speech assessment in process, currently made NPO. denies neck pain. Physical Exam Vital signs: Vital Signs 04/12/18 12:00 04/12/18 16:00 04/12/18 20:00 Temperature 97.8 F 98.2 F 99.7 F H Pulse Rate 99 H 96 H 89 Respiratory Rate 16 16 18 Blood Pressure 114/70 124/75 137/72 Pulse Oximetry 97 96 97 04/12/18 20:40 04/13/18 00:00 04/13/18 01:23 Temperature 97.6 F Pulse Rate 101 H Respiratory Rate 16 18 18 Blood Pressure 147/83 H Pulse Oximetry 97 04/13/18 05:17 04/13/18 08:00 Temperature 98.6 F Pulse Rate 105 H Respiratory Rate 17 20 Blood Pressure 139/71 Pulse Oximetry 96 Intake & Output 04/12/18 04/13/18 04/13/18 18:59 06:59 18:59 Intake Total 1050 / 1050 Output Total 475 / 475 Balance 1050 / 1050 -475 / -475 Intake: IV 1000 / 1000 Oral 50 / 50 Output: Urine 475 / 475 Other: Date of Last Bowel Movement 04/12/18 Narrative: Alert and conversant. Face symmetric. Follows commands Strength is excellent in all 4 extremities. Sensation intact throughout. [place] J collar in place. Incision clean with [place] dressing. - Urinary Catheter Management Indwelling Urethral Catheter Cath placed during this visit: yes, but has since been removed by the nurse Reason for continuing: Hourly intake/output Insertion date: 04/10/18 Removal date: 04/11/18 Removal time: 12:45 Assessment and Plan - Plan 57 year old male with a C2 type II nondisplaced odontoid fracture and spinal cord contusion from stenosis related to disc osteophyte complex at C3-4, C4-5 and C5-6 levels with cord compression. Now status post odontoid screw fixation and C3-6 ACDF fixation. continues to do well, minimal to no pain ST for swallow eval cont Daily PT and OT
[2018-04-13] MEDS: prednisoLONE Acetate 1% Opth Susp 5 ML Bottle RIGHT EYE SCH ×4 (11:07→20:02)
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
[2018-04-13] MEDS: Potassium Chloride Inj 10 MEQ in Sod Chloride 0.9% Inj 1,000 ML IV.CONT SCH ×2 (11:46→15:05)
--- NOTE | 2018-04-13 12:17 | P.PNCA ---
Subjective Interval history: alert in nad Physical Exam Vital signs: Vital Signs 04/12/18 16:00 04/12/18 20:00 04/12/18 20:40 Temperature 98.2 F 99.7 F H Pulse Rate 96 H 89 Respiratory Rate 16 18 16 Blood Pressure 124/75 137/72 Pulse Oximetry 96 97 04/13/18 00:00 04/13/18 01:23 04/13/18 05:17 Temperature 97.6 F Pulse Rate 101 H Respiratory Rate 18 18 17 Blood Pressure 147/83 H Pulse Oximetry 97 04/13/18 08:00 Temperature 98.6 F Pulse Rate 105 H Respiratory Rate 20 Blood Pressure 139/71 Pulse Oximetry 96 Intake & Output 04/12/18 04/13/18 04/13/18 18:59 06:59 18:59 Intake Total 1050 / 1050 Output Total 475 / 475 Balance 1050 / 1050 -475 / -475 Intake: IV 1000 / 1000 Oral 50 / 50 Output: Urine 475 / 475 Other: Date of Last Bowel Movement 04/12/18 - Urinary Catheter Management Indwelling Urethral Catheter Cath placed during this visit: yes, but has since been removed by the nurse Reason for continuing: Hourly intake/output Insertion date: 04/10/18 Removal date: 04/11/18 Removal time: 12:45 Assessment and Plan - Plan 1.) moderate risk for noncardiac surgery - pod#3, assymptomatic from cv standpoint 2.) CAD - assymptomatic, continue lipitor 20 mg hs, aspirin held for noncardiac surgery; restart ousmane if/when cleared by Dr Adriano Gambino
[2018-04-13] MEDS: Morphine Inj 4 MG/ML Vial IV.PUSH PRN ×3 (14:13→19:55)
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
[2018-04-13] MEDS: Azithromycin Inj 500 MG in Sodium Chlor 0.9% Inj 250 ML IV.SIG SCH (19:57)
[2018-04-14] MEDS: Morphine Inj 4 MG/ML Vial IV.PUSH PRN ×5 (02:40→21:35)
--- NOTE | 2018-04-14 05:35 | P.PNCA ---
Subjective Interval history: asleep in nad Physical Exam Vital signs: Vital Signs 04/13/18 08:00 04/13/18 12:00 04/13/18 16:00 Temperature 98.6 F 98.6 F 97.4 F L Pulse Rate 105 H 95 H 93 H Respiratory Rate 20 20 20 Blood Pressure 139/71 152/79 H 139/77 Pulse Oximetry 96 97 98 04/13/18 20:00 04/13/18 20:04 04/13/18 23:43 Temperature 98.9 F Pulse Rate 98 H Respiratory Rate 20 18 18 Blood Pressure 132/70 Pulse Oximetry 99 04/14/18 01:00 04/14/18 02:40 Temperature 97.8 F Pulse Rate 96 H Respiratory Rate 20 18 Blood Pressure 139/72 Pulse Oximetry 96 Intake & Output 04/13/18 04/13/18 04/14/18 06:59 18:59 06:59 Intake Total 250 / 250 1005 / 1005 250 / 250 Output Total 475 / 475 Balance -225 / -225 1005 / 1005 250 / 250 Intake: IV 250 / 250 1005 / 1005 250 / 250 KCl Inj 10 MEQ In NS Inj 1,000 1005 / 1005 ML @ 60 mls/hr IV.CONT .[id number] JOSE LUIS Rx#:[id number] Azithromycin Inj 500 MG In NS 250 / 250 250 / 250 Inj 250 ML @ 250 mls/hr IV.SIG Q24H JOSE LUIS Rx#:[id number] Output: Urine 475 / 475 Other: # Voids 3 Date of Last Bowel Movement 04/12/18 04/12/18 - Urinary Catheter Management Indwelling Urethral Catheter Cath placed during this visit: yes, but has since been removed by the nurse Reason for continuing: Hourly intake/output Insertion date: 04/10/18 Removal date: 04/11/18 Removal time: 12:45 Assessment and Plan - Plan 1.) moderate risk for noncardiac surgery - pod#4, assymptomatic from cv standpoint 2.) CAD - assymptomatic, continue lipitor 20 mg hs, aspirin held for noncardiac surgery; restart ousmane if/when cleared by Dr Adriano Gambino
[2018-04-14] MEDS: Potassium Chloride Inj 10 MEQ in Sod Chloride 0.9% Inj 1,000 ML IV.CONT SCH ×2 (08:56→18:20)
[2018-04-14] MEDS: Pantoprazole Inj 40 MG Vial IV.PUSH SCH (08:57)
[2018-04-14] MEDS: Enoxaparin Inj 40 MG/0.4 ML Syringe SQ SCH (08:57)
[2018-04-14] MEDS: prednisoLONE Acetate 1% Opth Susp 5 ML Bottle RIGHT EYE SCH ×2 (09:03→12:13)
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
[2018-04-14] MEDS: Senna/Docusate Sodium 8.6/50 MG Tablet PO SCH ×2 (11:08→21:35)
--- NOTE | 2018-04-14 14:14 | P.PNNS ---
Subjective Interval history: Pt awake and alert. States he is doing well except was having difficulty swallowing. Speech therapy was in earlier and cleared him for regular diet and nectar thickened liquids. He has some right trapezius discomfort but his pain is improved. He denies any paresthesias in UEs or LEs. No bowel or bladder incontinence. <Jay Mead - Last Filed: 04/14/18 14:05> Physical Exam Vital signs: Vital Signs 04/13/18 16:00 04/13/18 20:00 04/13/18 20:04 Temperature 97.4 F L 98.9 F Pulse Rate 93 H 98 H Respiratory Rate 20 20 18 Blood Pressure 139/77 132/70 Pulse Oximetry 98 99 04/13/18 23:43 04/14/18 01:00 04/14/18 02:40 Temperature 97.8 F Pulse Rate 96 H Respiratory Rate 18 20 18 Blood Pressure 139/72 Pulse Oximetry 96 04/14/18 05:47 04/14/18 10:14 Temperature 97.9 F Pulse Rate 102 H Respiratory Rate 18 18 Blood Pressure 128/77 Pulse Oximetry 93 L Intake & Output 04/13/18 04/14/18 04/14/18 18:59 06:59 18:59 Intake Total 1005 / 1005 250 / 250 1005 / 1005 Balance 1005 / 1005 250 / 250 1005 / 1005 Intake: IV 1005 / 1005 250 / 250 1005 / 1005 KCl Inj 10 MEQ In NS Inj 1,000 1005 / 1005 1005 / 1005 ML @ 60 mls/hr IV.CONT .[id number] JOSE LUIS Rx#:[id number] Azithromycin Inj 500 MG In NS 250 / 250 Inj 250 ML @ 250 mls/hr IV.SIG Q24H JOSE LUIS Rx#:[id number] Other: # Voids 3 1 Date of Last Bowel Movement 04/12/18 - Constitutional average body habitus, cooperative - Routine HEENT Exam Head: Present: normocephalic, atraumatic Eye: Present: PERRL. Absent: conjunctival icterus ENT: Present: oropharynx clear - Routine Neck Exam Absent: full ROM ([place] J cervical collar intact.) - Routine Respiratory Exam Present: CTA bilaterally. Absent: respiratory distress, rhonchi, wheezes - Routine Cardiovascular Exam Present: RRR, S1, S2. Absent: murmur - Routine Abdominal Exam Present: soft, normoactive bowel sounds. Absent: tenderness - Routine Extremities Exam Present: full ROM - Routine Skin Exam Absent: cyanosis, erythema (Incision is clean and dry without signs of infection.) - Routine Neurological Exam Present: alert, oriented X3, normal speech. Absent: sensory deficit, motor deficit, altered mental status, moving all extremities - Routine Psychiatric Exam Present: cooperative. Absent: agitated - Urinary Catheter Management Indwelling Urethral Catheter Cath placed during this visit: yes, but has since been removed by the nurse Reason for continuing: Hourly intake/output Insertion date: 04/10/18 Removal date: 04/11/18 Removal time: 12:45 <Jay Mead - Last Filed: 04/14/18 14:05> Vital signs: Vital Signs 04/13/18 20:00 04/13/18 20:04 04/13/18 23:43 Temperature 98.9 F Pulse Rate 98 H Respiratory Rate 20 18 18 Blood Pressure 132/70 Pulse Oximetry 99 04/14/18 01:00 04/14/18 02:40 04/14/18 05:47 Temperature 97.8 F Pulse Rate 96 H Respiratory Rate 20 18 18 Blood Pressure 139/72 Pulse Oximetry 96 04/14/18 10:14 Temperature 97.9 F Pulse Rate 102 H Respiratory Rate 18 Blood Pressure 128/77 Pulse Oximetry 93 L Intake & Output 04/13/18 04/14/18 04/14/18 18:59 06:59 18:59 Intake Total 1005 / 1005 250 / 250 1005 / 1005 Balance 1005 / 1005 250 / 250 1005 / 1005 Intake: IV 1005 / 1005 250 / 250 1005 / 1005 KCl Inj 10 MEQ In NS Inj 1,000 1005 / 1005 1005 / 1005 ML @ 60 mls/hr IV.CONT .[id number] JOSE LUIS Rx#:[id number] Azithromycin Inj 500 MG In NS 250 / 250 Inj 250 ML @ 250 mls/hr IV.SIG Q24H JOSE LUIS Rx#:[id number] Other: # Voids 3 1 Date of Last Bowel Movement 04/12/18 - Urinary Catheter Management Indwelling Urethral Catheter Cath placed during this visit: no <Adriano Barry - Last Filed: 09/04/18 16:18> Assessment and Plan - Assessment (1) Fracture of thoracic spine Code(s): S22.009A - Unspecified fracture of unspecified thoracic vertebra, initial encounter for closed fracture Status: Acute Qualifiers: Encounter type: initial encounter Thoracic vertebra fracture level: T7 Fracture type: closed Fracture morphology: other fracture Qualified Code(s) : S22.068A - Other fracture of T7-T8 thoracic vertebra, initial encounter for closed fracture (2) Stenosis of cervical spine with myelopathy Code(s): M47.12 - Other spondylosis with myelopathy, cervical region Status: Acute (3) Concussion Code(s): S06.0X9A - Concussion with loss of consciousness of unspecified duration, initial encounter Status: Acute Qualifiers: Encounter type: initial encounter Loss of consciousness presence/duration: with LOC of unspecified duration Qualified Code(s): S06.0X9A - Concussion with loss of consciousness of unspecified duration, initial encounter (4) Cervical spine fracture Code(s): S12.9XXA - Fracture of neck, unspecified, initial encounter Status: Acute Qualifiers: Cervical vertebra fracture level: C2 Fracture type: closed Fracture morphology: type II dens Fracture alignment: nondisplaced (5) Pulmonary contusion Code(s): S27.329A - Contusion of lung, unspecified, initial encounter Status: Acute Qualifiers: Encounter type: initial encounter Laterality: left Qualified Code(s): S27.321A - Contusion of lung, unilateral, initial encounter (6) Ribs, multiple fractures Code(s): S22.49XA - Multiple fractures of ribs, unspecified side, initial encounter for closed fracture Status: Acute Qualifiers: Encounter type: initial encounter Fracture type: closed Laterality: left Qualified Code(s): S22.42XA - Multiple fractures of ribs, left side, initial encounter for closed fracture - Plan 57 year old male with a C2 type II nondisplaced odontoid fracture and spinal cord contusion from stenosis related to disc osteophyte complex at C3-4, C4-5 and C5-6 levels with cord compression. Now status post odontoid screw fixation and C3-6 ACDF fixation. P: Pt doing well neurosurgically with pain controlled with pain medication which he is using prn. He states he is ambulating well. He has been cleared by speech therapy for regular diet with nectar thickened liquids. From our standpoint pt can be discharged and he agrees with this. We discussed restrictions of no driving. No pushing, pulling, lifting more than 5 pounds. Cervical collar on at all times. Follow up in office in 6 weeks with x-rays. Discussed no anti- inflammatory medications. Pt understands and agrees with plan. <Jay Mead - Last Filed: 04/14/18 14:05> - Attending Attestation The exam, history, and the medical decision-making described in the above note were completed with the assistance of the mid-level provider. I reviewed and agree with the findings presented. I attest that I had a [id number] encounter with the patient on the same day, and personally performed and documented my assessment and findings in the medical record. Cleared for thickened liquids and regular diet by speech pathology swallowing evaluation. Relates minimal bilateral shoulder discomfort and has been ambulating and voiding. No hoarseness. Resume aspirin therapy as per cardiology recommendation. Cleared for discharge from neurosurgical standpoint. Keep c- collar on at all times and follow-up in clinic in 6 weeks with the cervical spine x-rays. Patient is very pleased with his progress so far. <Adriano Barry - Last Filed: 04/14/18 16:18>
[2018-04-14] MEDS: Azithromycin Inj 500 MG in Sodium Chlor 0.9% Inj 250 ML IV.SIG SCH (21:34)
[2018-04-14 23:14] VITALS: O2SAT 98
[2018-04-15] MEDS: Morphine Inj 4 MG/ML Vial IV.PUSH PRN ×2 (02:30→08:06)
[2018-04-15] MEDS: Pantoprazole Inj 40 MG Vial IV.PUSH SCH (08:50)
[2018-04-15] MEDS: Loratadine 10 MG Tablet PO SCH (08:50)
[2018-04-15] MEDS: Senna/Docusate Sodium 8.6/50 MG Tablet PO SCH (08:50)
[2018-04-15] MEDS: Gabapentin 100 MG Capsule PO SCH (08:51)
[2018-04-15] MEDS: Enoxaparin Inj 40 MG/0.4 ML Syringe SQ SCH (08:51)
[2018-04-15 09:54] VITALS: BP 137/80; PULSE 92; RESP 20; TEMP 98
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
--- NOTE | 2018-04-15 16:07 | P.PNCA ---
Subjective Interval history: alert in nad Physical Exam Vital signs: Vital Signs 04/14/18 20:00 04/14/18 21:39 04/15/18 00:00 Temperature 97.4 F L 98.1 F Pulse Rate 114 H 91 H Respiratory Rate 17 18 17 Blood Pressure 135/67 127/67 Pulse Oximetry 98 98 04/15/18 02:32 04/15/18 08:00 Temperature 98.0 F Pulse Rate 92 H Respiratory Rate 18 20 Blood Pressure 137/80 Pulse Oximetry 98 Intake & Output 04/14/18 04/15/18 04/15/18 18:59 06:59 18:59 Intake Total 1005 / 1005 250 / 250 Balance 1005 / 1005 250 / 250 Intake: IV 1005 / 1005 250 / 250 KCl Inj 10 MEQ In NS Inj 1,000 1005 / 1005 ML @ 60 mls/hr IV.CONT .[id number] JOSE LUIS Rx#:[id number] Azithromycin Inj 500 MG In NS 250 / 250 Inj 250 ML @ 250 mls/hr IV.SIG Q24H JOSE LUIS Rx#:[id number] Other: # Voids 1 Date of Last Bowel Movement 04/12/18 - Urinary Catheter Management Indwelling Urethral Catheter Cath placed during this visit: yes, but has since been removed by the nurse Reason for continuing: Hourly intake/output Insertion date: 04/10/18 Removal date: 04/11/18 Removal time: 12:45 Assessment and Plan - Plan 1.) moderate risk for noncardiac surgery - pod#5, assymptomatic from cv standpoint 2.) CAD - assymptomatic, continue lipitor 20 mg hs, aspirin held for noncardiac surgery; restart ousmane if/when cleared by Dr Adriano Gambino
== END 2018-04-15 13:43 | disposition home health service (06) ==
LOC: NEPE 20:38 → NEDA 21:03 → N03 22:37 → N06 04-03 17:19 → N03 04-10 10:03 → N06 04-11 13:17
PROVIDERS: ADMIT Surgery; ATTEND Surgery